=== PATIENT | male | born 1950 ===

== ENCOUNTER 2023-08-08 09:27 | Outpatient (CLI) | payer MEDICARE, OTHER, SELFPAY ==
[2023-08-08 10:29] LABS: Basophils Absolute Auto 0.1 K/mm3 (0.0-0.1); Basophils Percent Auto 0.9 % (0.2-1.2); Eosinophils Absolute Auto 0.3 K/mm3 (0-0.3); Eosinophils Percent Auto 5.9 % (0-4.4); Hematocrit 41.9 % (42.0-52.0); Hemoglobin 13.4 g/dL (14.0-18.0); Immature Granulocyte Absolute 0.01 K/mm3 (0.00-0.031); Immature Granulocyte Percent A 0.2 % (0-0.5); Lymphocytes Absolute Auto 1.71 K/mm3 (0.9-3.2); Lymphocytes Percent Auto 31.5 % (18.3-44.2); Mean Corpuscular Hemoglobin 31.1 pg (26-34); Mean Corpuscular Volume 97.2 fl (80-100); Mean Platelet Volume 10.4 fl (7.4-10.4); Monocytes Absolute Auto 0.5 K/mm3 (0.1-0.6); Monocytes Percent Auto 8.7 % (2.6-8.5); Neutrophils Absolute Auto 2.9 K/mm3 (1.3-6.7); Neutrophils Percent Auto 52.8 % (45.5-73.1); Platelet Count Result 217 k/mm3 (150-375); Red Blood Count 4.31 M/mm3 (4.6-6.20); Red Cell Distribution Width 14.1 % (11.5-14.5); White Blood Count 5.4 K/mm3 (4.5-10.0)
[2023-08-08 10:46] LABS: Prothrombin Time 24.2 Seconds (11.1-14.7)
[2023-08-08 10:59] LABS: Anion Gap 6 mmol/L (8-16); Blood Urea Nitrogen 18 mg/dL (9-20); Calcium 8.9 mg/dL (8.4-10.2); Carbon Dioxide 31 mmol/L (22-30); Chloride 106 mmol/L (98-107); Estimated Glomerular Filt Rate > 60; Glucose 94 mg/dL (65-110); Potassium 4.1 mmol/L (3.4-5.0); Sodium 143 mmol/L (137-145)
[2023-08-08 13:10] LABS: Partial Thromboplastin Time 33.7 SECONDS (22.3-36.8)
== END 2023-08-08 09:28 | disposition home or self-care (01) ==
LOC: ANHLAB 09:42
PROVIDERS: Visit Provider Anesthesiology
DX: R07.89 Other chest pain (principal); A79.1 Rickettsialpox due to Rickettsia akari; I25.10 Atherosclerotic heart disease of native coronary artery without angina pectoris
CPT/HCPCS: 36415; 80048; 85025; 85610; 85730

== ENCOUNTER 2024-02-27 06:20 | Emergency (ER) | payer MEDICARE, SELFPAY ==
--- NOTE | ~2024-02-27 | XR_ITS ---
EXAMINATION: XR foot RT min 3V DATE: 02/27/2024 09:38 INDICATION: Right foot pain and swelling. TECHNIQUE: 4 views of right foot were obtained. COMPARISON: None. FINDINGS: There is mild valgus. No fracture. There is severe osteoarthritis of first metatarsophalang eal joint and mild osteoarthritis of the interphalangeal joints and midfoot joints. There is an enthe sophyte at plantar aspect of calcaneal tuberosity. IMPRESSION: 1. Particular osteoarthritis. 2. Mild hallux valgus. Reviewed, dictated and finalized at location A.
[2024-02-27 06:25] VITALS: BP 120/96; PULSE 98; RESP 20; TEMP 36.7; O2SAT 99
--- NOTE | 2024-02-27 09:24 | ED.EXTPRO ---
HPI - Extremity Problem General Chief complaint: Extremity Problem,Nontraumatic Stated complaint: foot pain and swelling Time Seen by Provider: 02/27/24 08:35 History of Present Illness HPI Narrative: Patient is a 73-year-old male who presents to the ER with swelling of the right foot for the last 3 days. Pain over the plantar aspect of the MTP joints 1 through 3. No known trauma. Denies history of gout but has had swelling in the area before. No fevers or chills or sweats. Has pain with walking. Better with rest. No calf pain. No history DVT. Patient is anticoagulated due to history of AFib. Related Data Allergies Allergy/AdvReac Type Severity Reaction Status Date / Time No Known Allergies Allergy Verified 02/27/24 06:25 Review of Systems Constitutional: Constitutional: Reports no additional constitutional complaints ENT: Reports system reviewed and no additional complaints, except as documented Cardiovascular: Cardiovascular: Reports no additional cardiovascular complaints Respiratory: Respiratory: Reports no additional respiratory complaints Musculoskeletal: Musculoskeletal: Denies back pain, Reports arthralgias, Reports joint swelling and Denies muscle cramps Neurologic: Reports system reviewed and no additional complaints, except as documented PMFSH Past Medical History Medical History (Updated 02/27/24 @ 11:21 by Hero Plascencia MD) Afib GERD (gastroesophageal reflux disease) Hyperlipidemia Hypertension Surgical History Surgical History (Updated 02/27/24 @ 11:15 by Hero Plascencia MD) Hx of CABG Exam Narrative: GENERAL: Well-appearing, well-nourished, and in no acute distress. HEAD: Normocephalic, atraumatic. ENT: Mucous membranes moist. CHEST: Clear to auscultation. No respiratory distress. HEART: Regular rate and rhythm. Normal peripheral pulses. EXTREMITIES: Normal range of motion. Mild edema of the right forefoot with slight redness but no warmth or point tenderness. Negative Homans sign bilaterally. SKIN: Warm, dry, no rash. Yellowing bruise left deltoid. NEURO: Alert and oriented x3. PSYCH: Normal mood and affect. Course Vital Signs Vital signs: Vital Signs Temperature 98.0 F 02/27/24 06:25 Pulse Rate 98 02/27/24 06:25 Respiratory Rate 20 02/27/24 06:25 Blood Pressure 120/96 H 02/27/24 06:25 Pulse Oximetry 99 02/27/24 06:25 Oxygen Delivery Room Air 02/27/24 06:25 Temperature 98.0 F 02/27/24 06:25 Pulse Rate 98 02/27/24 06:25 Respiratory Rate 20 02/27/24 06:25 Blood Pressure 120/96 H 02/27/24 06:25 Pulse Oximetry 99 02/27/24 06:25 Oxygen Delivery Room Air 02/27/24 06:25 MDM - Extremity (Nontraumatic) MDM Narrative Medical decision making narrative: -Course: Resting comfortably. Informed of results. Discussed treatment plan. -Co-morbidities complicating care: Anticoagulation usage, coronary disease -Social determinants of health: Lives at home -External Chart Review: None -Hx from independent Sources: Patient -Independent interpretation of studies: CBC unremarkable but mild anemia at 13.2. CMP normal. CRP and ESR also normal. Uric acid normal. Foot x-ray with severe osteoarthritis at the 1st MTP. -Interventions: Toradol 30 mg IV x1. Postop shoe, Cruz wrap -Shared decision making / Disposition: Discharge home. Tylenol and rest/ice/compression/elevation. Lab Data 02/27/24 09:29 02/27/24 09:29 Labs: Lab Results 02/27/24 Range/Units 09:29 WBC 9.4 (4.5-10.0) K/mm3 RBC 4.09 L (4.6-6.20) M/mm3 Hgb 13.2 L (14.0-18.0) g/dL Hct 39.5 L (42.0-52.0) % MCV 96.6 (80-100) fl MCH 32.3 (26-34) pg MCHC 33.4 (32-36) g/dl RDW 16.3 H (11.5-14.5) % Plt Count 184 (150-375) k/mm3 MPV 10.4 (7.4-10.4) fl Immature Gran % (Auto) 0.2 (0-0.5) % Neut % (Auto) 61.0 (45.5-73.1) % Lymph % (Auto) 23.0 (18.3-44.2) % Lamar % (Auto) 10.5 H (2.6-8.5) %
[2024-02-27] MEDS: KETOROLAC 30 MG/ML VIAL (*BKC) IV PUSH (09:29)
[2024-02-27 09:37] LABS: Basophils Absolute Auto 0.1 K/mm3 (0.0-0.1); Basophils Percent Auto 0.7 % (0.2-1.2); Eosinophils Absolute Auto 0.4 K/mm3 (0-0.3); Eosinophils Percent Auto 4.6 % (0-4.4); Hematocrit 39.5 % (42.0-52.0); Hemoglobin 13.2 g/dL (14.0-18.0); Immature Granulocyte Absolute 0.02 K/mm3 (0.00-0.031); Immature Granulocyte Percent A 0.2 % (0-0.5); Lymphocytes Absolute Auto 2.17 K/mm3 (0.9-3.2); Mean Corpuscular HGB Conc 33.4 g/dl (32-36); Mean Corpuscular Hemoglobin 32.3 pg (26-34); Mean Corpuscular Volume 96.6 fl (80-100); Mean Platelet Volume 10.4 fl (7.4-10.4); Monocytes Percent Auto 10.5 % (2.6-8.5); Neutrophils Absolute Auto 5.8 K/mm3 (1.3-6.7); Platelet Count Result 184 k/mm3 (150-375); Red Blood Count 4.09 M/mm3 (4.6-6.20); Red Cell Distribution Width 16.3 % (11.5-14.5); White Blood Count 9.4 K/mm3 (4.5-10.0)
[2024-02-27 09:53] LABS: Alanine Aminotransferase 23 U/L (6-50); Albumin Level 4.8 g/dL (3.5-5.1); Alkaline Phosphatase 85 U/L (38-126); Anion Gap 9 mmol/L (4-12); Aspartate Amino Transferase 26 U/L (17-59); Bilirubin,Total 0.5 mg/dL (0.2-1.3); Blood Urea Nitrogen 19 mg/dL (9-20); CRP 0.9 mg/dL (<1.0); Calcium 9.2 mg/dL (8.4-10.2); Carbon Dioxide 29 mmol/L (22-30); Chloride 97 mmol/L (98-107); Estimated CRCL calculation 71 ml/min; Estimated Glomerular Filt Rate > 60; Glucose 99 mg/dL (65-110); Potassium 3.8 mmol/L (3.4-5.0); Sodium 135 mmol/L (137-145)
[2024-02-27 10:52] LABS: Erythrocyte Sedimentation Rate 17 mm/hr (0-20)
[2024-02-27 11:30] VITALS: BP 100/72; PULSE 80; RESP 16; TEMP 36.6; O2SAT 100
== END 2024-02-27 11:30 | disposition home or self-care (01) ==
PROVIDERS: Emergency Provider Emergency Medicine
DX: M19.071 Primary osteoarthritis, right ankle and foot (principal); I48.91 Unspecified atrial fibrillation; I10 Essential (primary) hypertension; I25.10 Atherosclerotic heart disease of native coronary artery without angina pectoris; E78.5 Hyperlipidemia, unspecified; K21.9 Gastro-esophageal reflux disease without esophagitis; Z95.1 Presence of aortocoronary bypass graft; Z79.01 Long term (current) use of anticoagulants; M20.11 Hallux valgus (acquired), right foot
CPT/HCPCS: 36415; 73630; 80053; 84550; 85025; 85652; 86140; 96374; 99284; J1885

== ENCOUNTER 2025-02-07 04:42 | Emergency (ER) | payer MEDICARE, SELFPAY ==
--- OUTSIDE RECORDS SUMMARY | 2025-02-07 04:44 | XMS_ITS | Patient Health Record ---
Author Organization [facility] Address [address] [place] [address] RAM[place] Barajas [phone] Care Team Providers Care Coordinator Cardiopulmonary Services Name Role Phone Yuridia NUNEZ, ANIBAL Primary Care Provider Shabbir Leigh Unavailable [phone] ALLERGIES Allergen (clinical drug ingredient) Drug/Non Drug Allergy documented on EMR Reaction Allergy Type Onset Date Status gabapentin Neurontin hallucinations Drug Allergy A ctive REASON FOR REFERRAL No Information MEDICATIONS Medication SIG (Take, Route, Frequency, Duration) Notes Start Date End Date Status Ezetimibe 10 MG Oral for 90 Ac tive Chlorhexidine Gluconate 4 % as directed, use night before and the morning of procedure Externally Two times for 2 days 08/20/2023 Active Esomeprazole Magnesium 40 MG Oral for 90 Active HYDROcodone-Acetaminophen 10-325 MG 2 tablets Oral BID Active QUEtiapine Fumarate 25 MG 1 tablet Oral Once a day Active Warfarin Sodium 4 MG Oral for 90 Active Colchicine 0.6 MG 1 tablet Oral Once a day Active ASA 1 tab Oral Active buPROPion HCl ER (XL) 150 MG 1 tablet in the morning Oral Once a day Active Atorvastatin Calcium 40 MG 1 tablet Oral ly Once a day Active Linzess 145 MCG 1 capsule Oral Once a day Active Fenofibric Acid 105 MG 1 tablet Orally O nce a day Active Diclofenac 18 MG 1 capsule as needed Orally Two times a day Active DULoxetine HCl 60 MG Oral for 90 Active Donepezil HCl 5 MG 1 tablet at bedtime Orally Once a day for 30 day(s) Active Vitamin D-3 1000 UNIT Orally Active Famotidine 40 MG Oral for 90 A ctive Metoprolol Tartrate 25 MG Oral for 90 Active PROBLEMS Problem Type ICD Code Onset Dates Problem Status W/U Status Risk SNOMED Code Notes Problem 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 Problem Chronic pain syndrome (G89.4) Active confirmed Chronic isaiah n syndrome (670121376) Problem Spinal enthesopathy, site unspecified (M46.00) Active confirmed Spinal enthesopathy (47410958) Cervical and lumbar myofascial pain/muscle spasm Problem Spondylosis without myelopathy or radiculopathy, lumbar region (M47.816) Active confirmed Lumbosacral spondylosis without myelopathy (28482974) Problem Spondylosis without myelopathy or radiculopathy, lumbosacral region (M47.817) Active confirmed Lumbosacral spondylosis without myelopathy (disorder) (63558504) Problem Intervertebral disc disorders with radiculopathy, 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) Active confirmed Thoracic radiculopathy (02678051) Problem Radiculopathy, thoracic region (M54.14) Active confirmed Thoracic radiculopathy (29506059) Problem Radiculopathy, lumbar region (M54.16) Active confirmed Lumbar radiculopathy (751176230) Problem Postlaminectomy syndrome, not elsewhere classified (M96.1) Active confirmed Post-laminecto my syndrome (70258517) Problem intermediate frame tender (current) use of anticoagulants (Z79.01) Active confirmed Long-term current use of anticoagulant (645224213) Problem Other mechanical complication of implanted electronic neurostimulator of spinal cord electrode (lead), initial encounter (T85.192A) Active confirmed Mechanical complication of nervous system device, implant AND/OR graft (64849335) Problem Other mechanical complication of implanted electronic neurostimulator, generator, initial encounter (T85.193A) Active confirmed Mechanical complication of nervous system device, implant AND/OR graft (33264210) PLAN OF TREATMENT No Information Insurance Providers Payer Name Payer Address Payer Phone Subscriber Number Group Number Insured Name Patient Relationship to Insured Coverage Start Date Coverage End Date Medicare [place] [address] [address] [place] [phone] [id number] LEXII YANEZ Self - patient is the insured 3 [place] [employer] [place] [address] [place] [phone] [id number] PLAN F LEXII YANEZ Self - patient is the insured 4 MEDICAL (GENERAL) HISTORY Medical History History ICD Code Hypertension CVA Osteoarthritis Gout Surgical History Surgery Date(Month/Year) Left L1-2 Laminectomy Medial facetectomy disc fragments 10/2005 L4-5 laminectomy 1996 CABG 07/2020 Hospitalization History Reason Date(Month/Year) SEE SURGERIES ABOVE
--- OUTSIDE RECORDS SUMMARY | 2025-02-07 04:44 | XMS_ITS | Encounter Summary ---
Author Organization [facility] Health Address [address] [place] [address] Care Team Providers Care Poultry Farm Manager Name Role Phone Joon Hightower MD Unavailable [phone] Encounter Details Date Type Department Care Team (Late st Contact Info) Description 05/14/2019 Lab Requisition [facility] Care DermPath Lab [address] [place] [phone] Reed Alcala MD [facility] [address] [phone] Social History Tobacco Use Types Packs/Day Years Used Date Smoking Tobacco: Every Day Cigarettes 0.3 35 Smokeless Tobacco: Never Alcohol Use Standard Drinks/Week Comments Yes 0 (1 standard drink = 0.6 oz pur e alcohol) Sex and Gender Information Value Date Recorded Sex Assigned at Not on file 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 Gender Identity Not on file Sexual Orientation Not on file documented as of this encounter Plan of Treatment Not on file documented as of this encounter Procedures Procedure Name Priority Date/Time Associated Diagnosis Comments DERMATOPATHOLOGY Routine 05/13/2019 12:0 0 AM CDT documented in this encounter Results * DERMATOPATHOLOGY (05/13/2019 12:00 AM CDT) Case Report Dermatopathology Report Case: [id number] Authorizing Provider: Reed Alcala MD Collected: 05/13/2019 12:00 AM Ordering Location: [facility] DermPath Lab Received: 05/14/2019 09:41 AM Pathologist: Melonie Hsu MD Specimen: Skin, left lateral torso 12:58 PM CDT DERMATOPATHOLOGY LABORATORY Final Diagnosis Specimen A. 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 12:58 PM CDT DERMATOPATHOLOGY LABORATORY Gross Description Specimen A: Received is one formalin filled container labeled with the patient's name and designated left lateral torso. The specimen consists of a shave biopsy measuring [id number]. Jar 0. 12:58 PM CDT DERMATOPATHOLOGY LABORATORY Microscopic Description Specimen A. SKIN, left lateral torso: Sections show nests of cells with pale cytoplasm and thin strands of relatively normal keratinocytes intervening. There is overlying parakeratosis. 12:58 PM CDT DERMATOPATHOLOGY LABORATORY Disclaimer An external and internal positive and negative controls are appropriate for the histochemical, immunohistochemical and immunofluorescence stain(s) in this case (if any), except where stated explicitly. The performance characteristics of the stain(s) cited in this report were developed and its performance characteristic determined by the Dermatopathology Laboratory at [facility], directed by Dr. Jair Carrasquillo. These tests need not be, and therefore are not, approved by the [place] Food and Drug Administration. The tests are used for clinical purposes. Billing Codes Specimen Charges Stain Charges 97732 1 12:58 PM CDT DERMATOPATHOLOGY LABORATORY Embedded Images 12:58 PM CDT DERMATOPATHOLOGY LABORATORY Pathology/Cytolog y TISSUE SPECIMEN FROM SKIN / Unknown 05/13/2019 05/14/2019 9:41 AM CDT Reed Alcala MD LAB - PATHOLOGY/CYTOLOGY ORDERAB LES Final Result DERMATOPATHOLOGY LABORATORY [facility] - Department of Dermatology [address] [place] [address], 5th Floor Lab [address] [phone] documented in this encounter Visit Diagnoses Not on filedocumented in this encounter Care Teams Poultry Farm Manager Relationship Specialty Start Date End Date Joon Hightower MD [address] [facility] [place] [phone] PCP - Attributed-MSSP 07/28/20 08/16/21 documented as of this encounter
--- OUTSIDE RECORDS SUMMARY | 2025-02-07 04:44 | XMS_ITS | Encounter Summary ---
Author Organization [facility] Health Address [address] [facility] [place] [address] Care Team Providers Care Hydroelectric Plant Structural Engineer Name Role Phone Unavailable Primary Care Provider Unavailabl e Encounter Details Date Type Department Care Team (Late st Contact Info) Description 12/05/2021 Lab Requisition [facility] DermPath Lab [address] [place] [address] Reed Alcala MD [address] [place] [phone] Social History Tobacco Use Types Packs/Day Years Used Date Smoking Tobacco: Every Day Cigarettes 0.3 35 Smokeless Tobacco: Never Alcohol Use Standard Drinks/Week Comments Yes 0 (1 standard drink = 0.6 oz pur e alcohol) Sex and Gender Information Value Date Recorded Sex Assigned at Not on file 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 Gender Identity Not on file Sexual Orientation Not on file documented as of this encounter Plan of Treatment Not on file documented as of this encounter Procedures Procedure Name Priority Date/Time Associated Diagnosis Comments DERMATOPATHOLOGY Routine 12/04/2021 12:0 0 AM CDT documented in this encounter Results * DERMATOPATHOLOGY (12/04/2021 12:00 AM CDT) Case Report Dermatopathology Report Case: [id number] Authorizing Provider: Reed Alcala MD Collected: 12/04/2021 12:00 AM Ordering Location: [facility] DermPath Lab Received: 12/05/2021 08:21 AM Pathologist: Meri Hancock MD Specimen: Skin, right lateral knee 4:22 PM T DERMATOPATHOLOGY LABORATORY Final Diagnosis Specimen A. SKIN, right lateral knee: ACTINIC KERATOSIS, PIGMENTED (L57.0) (see microscopic description) 2 4:22 PM T DERMATOPATHOLOGY LABORATORY at 1622 CDT Clinical History SK, Lentigo, R/O Atypical Melanocytic Lesion 4:22 PM T DERMATOPATHOLOGY LABORATORY Gross Description Specimen A: Received is one formalin filled container labeled with the patient's name and designated right lateral knee. The specimen consists of a shave biopsy measuring [id number]. Jar 0. 4:22 PM T DERMATOPATHOLOGY LABORATORY Microscopic Description Specimen A. SKIN, right lateral knee: There is hyperkeratosis. Along the undersurface of the epidermis, there are buds of atypical keratinocytes in a disorderly arrangement. There is prominent pigmentation in some of the keratinocytes. The number of melanocytes, highlighted by MART-1/Melan-A immunohistochemical staining, is only mildly increased. 4:22 PM CDT DERMATOPATHOLOGY LABORATORY Disclaimer An external and internal positive and negative controls are appropriate for the histochemical, immunohistochemical and immunofluorescence stain(s) in this case (if any), except where stated explicitly. The performance characteristics of the stain(s) cited in this report were developed and its performance characteristic determined by the Dermatopathology Laboratory at [facility], directed by Dr. Jair Carrasquillo. These tests need not be, and therefore are not, approved by the [place] Food and Drug Administration. The tests are used for clinical purposes. Billing Codes Specimen Charges Stain Charges 35693 1 21209 1 2 4:22 PM CDT DERMATOPATHOLOGY LABORATORY Embedded Images 2 4:22 PM CDT DERMATOPATHOLOGY LABORATORY Pathology/Cytolog y TISSUE SPECIMEN FROM SKIN / Unknown 12/04/2021 12/05/2021 8:21 AM CDT us Reed Alcala MD LAB - PATHOLOGY/CYTOLOGY ORDERAB LES Final Result DERMATOPATHOLOGY LABORATORY [facility] - Department of Dermatology [facility] Medicine [address] [place] [address], [address] [phone] documented in this encounter Visit Diagnoses Not on filedocumented in this encounter
--- OUTSIDE RECORDS SUMMARY | 2025-02-07 04:44 | XMS_ITS | Clinical Summary ---
Author Organization [facility] Address [address] [facility] [place] [address] Care Team Providers Care Food Sales Clerk Name Role Phone Unavailable Primary Care Provider Unavailabl e Source Comments [facility],non-owned Affiliates and Associated Physician Practices is amultiple site organization consisting of ambulatory clinics and hospital sitesin [place], [place], [place] and [place]. This disclosure is being madepursuant to the Care Everywhere program and may not contain all information available regarding this patient. Last updated 18.[facility] Allergies No known active allergies Medications * Be aware that medications may not be up to date on this document. Alwaysverify current medications with the patient. aspirin EC (ECOTRIN) 81 MG tablet Take 81 mg by mouth once daily. Last dose one week or more Active atorvastatin (LIPITOR) 40 MG tablet Take 40 mg by mouth at bedtime. Active pantoprazole EC (PROTONIX) 40 MG tablet Take 40 mg by mouth once daily. Instructed to take a.m. Of surgery with sip of water Active amLODIPine (NORVASC) 10 MG tablet Take 10 mg by mouth once daily. Instructed to take a.m. Of surgery with sip of water Active ramipril (ALTACE) 10 MG capsule Take 10 mg by mouth once daily. Instructed to take a.m. Of surgery with sip of water Active escitalopram (LEXAPRO) 10 MG tablet Take 10 mg by mouth once daily. Active indapamide (LOZOL) 2.5 MG tablet Take 1.25 mg by mouth once daily. Instructed to take a.m. Of surgery with sip of water Active naproxen-esomep razole EC (VIMOVO) 500-20 MG tablet Take 1 Tab by mouth 2 times daily before meals. Active oxycodone, immediate release, (OXY-IR) 15 MG tablet Take 15 mg by mouth every 4 hours as needed. Active temazepam (RESTORIL) 15 MG capsule Take 15 mg by mouth nightly as needed. Active milnacipran (SAVELLA) 50 MG tablet Take 50 mg by mouth once daily. Active hydrocodone-telly taminophen (VICODIN) 5-500 MG tablet Take 1-2 Tabs by mouth every 6 hours as needed for Pain. 36 Tab 0 1 Active ciprofloxacin (CIPRO) 500 MG tablet Take 1 Tab by mouth every 12 hours. 14 Tab 0 1 Active docusate sodium (COLACE) 100 MG capsule Take 1 Cap by mouth 2 times daily. 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 Gender Identity Not on file Sexual Orientation Not on file Last Filed Vital Signs Vital Sign Reading Time Taken Comments Blood Pressure 141/83 03/28/2011 5:30 AM CDT Pulse 83 03/28/2011 5:30 AM CDT Temperature 37 C (98.6 F) 03/28/2011 5:30 AM CDT Respiratory Rate 16 03/28/2011 5:30 AM CDT Oxygen Saturation 100% 03/28/2011 5:30 AM CDT Inhaled Oxygen Concentration - - Weight 72.2 kg (159 lb 2.8 oz) 03/27/2011 10:48 AM CDT Height 170.2 cm (5' 7) 03/27/2011 10:48 AM CDT Body Mass Index 24.93 03/27/2011 10:48 AM CDT Plan of Treatment Health Maintenance Due Date Last Done Comments HEPATITIS C SCREENING 07/08/1966 DTAP/TDAP/TD VACCINES (1 - Tdap) 1967 PNEUMOCOCCAL VACCINE 50+ (1 of 2 - PCV) 1967 ZOSTER VACCINE (1 of 2) 1998 Respiratory Syncytial Virus (RSV) Vaccine Pt: or over 60 yrs (1 - 1-dose 75+ series) 2023 COVID-19 VACCINE (1 - 2023-2 5 season) 2024 DEPRESSION SCREENING 07/28/2024 INFLUENZA VACCINE (#1) 2025 HEPATITIS B VACCINE Aged Out No longe r eligible based on patient's age to complete this topic HIB VACCINE Aged Out No longer eligi ble based on patient's age to complete this topic HPV VACCINE Aged Out No longer eligi ble based on patient's age to complete this topic MENINGOCOCCAL (Group B) VACC INE SHARED DECISION-MAKING Aged Out No longer eligibl e based on patient's age to complete this topic MENINGOCOCCAL GROUPS A/C/Y/W VACCINE Aged Out No longer eligible b ased on patient's age to complete this topic Insurance MEDICARE [facility] Advance Directives * FULL RESUSCITATION (Latest Code Status on File) Date Activated Date Inactivated Comments 03/27/2011 6:37 PM 03/29/2011 12:40 AM
--- OUTSIDE RECORDS SUMMARY | 2025-02-07 04:45 | XMS_ITS ---
Author Organization [facility] Address [id number] [place] [id number] Care Team Providers Care Front Desk Receptionist Name Role Phone Joon Hightower MD Primary Care Provider [phone] Adelso Guerrero MD Unavailable Matias Gomez NP Unavailable [phone] Khris Paiz MD Unavailable Sonny Diamond MD Unavailable Jody Sullivan DO Unavailable Matt Hickey MD Unavailable Active Problems Problem Noted Date Diagnosed Date Back pain, unspecified back location, unspecified back pain laterality, unspecified chronicity 07/06/2024 Upper extremity weakness 09/16/2023 Atrial fibrillation with RVR 08/28/2023 Abrasion of face 06/10/2023 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 08/16/2022 Primary osteoarthritis of both knees 07/17/2022 Status post right knee replacement 07/17/2022 Other thrombophilia 11/06/2021 Neoplasm of uncertain behavior of skin Atrial flutter, unspecified type 10/25/2021 Hx of CABG 10/11/2021 Atrial flutter 10/11/2021 Therapeutic opioid induced constipation 10/10/19 History of depression 05/21/2021 History of fibromyalgia 05/21/2021 CHF (congestive heart failure) 05/21/2021 Actinic keratosis 01/30/2021 Keratosis 01/30/2021 Melanocytic nevus of trunk 01/30/2021 Screening for malignant neoplasm of skin 021 Pain in right knee 06/12/2020 Primary osteoarthritis of right knee 02/17/2020 Osteoarthritis of left knee 02/17/2020 Chronic pain of right knee 01/17/2020 Gait difficulty 12/14/2019 Bradycardia 10/11/2019 Unspecified atrial fibrillation 10/11/2019 Valvular heart disease 10/11/2019 Coronary artery disease of n ative heart with stable angina pectoris ([facility]) 08/03/2019 Overview (08/03/2019): Added automatically from request for surgery [id number] Atrioventricular block, first degree 06/14/2019 Squamous cell carcinoma in situ (SCCIS) 05/18/20 19 Assessment & Plan (05/31/2019 12:48 PM DIAL POLISHER): Left midback Pathology results and diagnosis discussed. Excision versus imiquimod for treatment discussed with patient including risks, benefits, and recovery of each. The patient would like to opt for cream at this time to avoid further surgery. I explained to him the directions for using this cream and what the expected outcome will be. He would like to proceed and I will send in his prescription today. Pseudogout 04/16/2019 Chronic bilateral low back pain with bilateral s ciatica 04/12/2019 Radiculopathy, lumbosacral region 04/12/2019 Lumbosacral spondylosis without myelopathy 04/12 Postlaminectomy syndrome, lumbar 04/12/2019 Spinal stenosis of lumbar re gion without neurogenic claudication 04/12/2019 Myalgia 04/12/2019 Long-term current use of opiate analgesic 2018 Severe malnutrition 10/19/2018 Cellulitis of left hand 10/17/2018 Personal history of gout 10/17/2018 Cerebral infarction, unspecified 06/08/2018 Chronic obstructive pulmonary disease 06/08/2018 Disorder of lung 06/08/2018 Encounter for health-related screening 8 Gallbladder sludge 06/08/2018 Impaired glucose tolerance 06/08/2018 Iron deficiency 06/08/2018 Overview (04/04/2021): b12 and float normal Neck pain, chronic 06/08/2018 Overweight 06/08/2018 Personal history of nicotine dependence 06/08/20 18 Vitamin D deficiency 06/08/2018 Prostate cancer (CMS/HCC) 03/26/2011 Hyperlipidemia 10/10/2009 Hypertension 10/06/2009 Family history of heart disease 07/28/1961 Overview (04/04/2021): mom has sotomayor surgery and pacer Current Treatment and Therapy Plans No current plan information found. Past Treatment and Therapy Plans No past plan information found. 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 Pathology results discussed, no further treatment required. Sutures removed without difficulty, wound care administered and instructions given both verbally and in written form. Follow-up in 6 weeks. Assessment & Plan (05/17/2019 1:28 PM CDT): Previously biopsied by Dr. Alcala. To be excised in the clinic today by Dr. Jose. Please see separate procedure note.
--- OUTSIDE RECORDS SUMMARY | 2025-02-07 04:45 | XMS_ITS | Encounter Summary ---
Author Organization [facility] Address [address] [place] [address] Care Team Providers Care Impersonator Character Name Role Phone Joon Hightower MD Primary Care Provider [phone] Khushi Aleman RN Unavailable Unavailab Adelso Helm MD Unavailable [phone] Matias Gomez NP Unavailable [phone] Reason for Visit * Diagnostic Imaging (Routine) - Closed Specialty Diagnoses / Procedures Referred By Contac t Referred To Contact Diagnoses Status post right knee replacement Procedures XR Knee Right 3 View Adelso Guerrero MD Phone: tel: fax: [facility] Medical Group Referral ID Status Reason Start Date Expiration Date Visits Re quested Visits Authorized [id number] Closed 05/14/2023 06/12/2024 1 1 Encounter Details Date Type Department Care Team (Late st Contact Info) Description 05/14/2023 10:11 AM CDT Hospital Encounter [facility] [address] [address] Social History Tobacco Use Types Packs/Day Years Used Date Smoking Tobacco: Every Day Cigarettes Smokeless Tobacco: Never Comments:A couple daily Alcohol Use Standard Drinks/Week Comments No 0 (1 standard drink = 0.6 oz pur e alcohol) social C Utilities Answer Date Recorded In the past 12 months has th e electric, gas, oil, or water company threatened to shut off services in your home? No 07/07/2024 Social Connection and Isolat ion Panel [NHANES] Answer Date Recorded In a typical week, how many times do you talk on the phone with family, friends, or neighbors? More than three times a week 07/07/2024 How often do you get togethe r with friends or relatives? More than three times a week 07/07/2024 How often do you attend chur ch or restorationism services? Never 07/07/2024 Do you belong to any clubs o r organizations such as uatsdin groups, unions, fraternal or athletic groups, or school groups? No 07/07/2024 How often do you attend meet ings of the clubs or organizations you belong to? Never 07/07/2024 Are you , , di vorced, , never , or living with a partner? 07/07/2024 AUDIT-C Answer Date Recorded Q1: How often do you have a drink containing alc ohol? 2-4 times a month 07/07/2024 Q2: How many drinks containi ng alcohol do you have on a typical day when you are drinking? 1 or 2 07/07/2024 Q3: How often do you have si x or more drinks on one occasion? Weekly 07/07/2024 Overall Financial Resource Strain (CARDIA) Answe r Date Recorded How hard is it for you to pa y for the very basics like food, housing, medical care, and heating? Not hard at all 07/07/2024 PHQ-2 Answer Date Recorded PHQ-2 Total Score (If total score is 3 or more points, staff should administer the PHQ-9) 0 05/21/2021 Hunger Vital Sign Answer Date Recorded Within the past 12 months, y ou worried that your food would run out before you got the money to buy more. Never true 07/07/20 24 Within the past 12 months, t he food you bought just didn't last and you didn't have money to get more. Never true 07/07/2024 PRAPARE - Transportation Answer Date Re corded In the past 12 months, has l ack of transportation kept you from medical appointments or from getting medications? No 06/27 In the past 12 months, has l ack of transportation kept you from meetings, work, or from getting things needed for daily living? No 07/07/2024 Housing Stability Vital Sign Answer Haris e Recorded In the last 12 months, was t here a time when you were not able to pay the mortgage or rent on time? No 08/28/2023 In the last 12 months, how many places have you lived? 1 08/28/2023 In the last 12 months, was t here a time when you did not have a steady place to sleep or slept in a care home (including now)? No 08/28/2023 Housing Stability Vital Sign Answer Haris e Recorded In the last 12 months, was t here a time when you were not able to pay the mortgage or rent on time? No 07/07/2024 In the past 12 months, how m any times have you moved where you were living? 0 07/07/2024 At any time in the past 12 m [facility], were you homeless or living in a care home (including now)? No 07/07/2024 Personal Safety Answer Date Recorded Have you ever been in or are you currently in a harmful physical or emotional relationship or is someone making you feel afraid or unsafe? Denies 07/06/2024 Sex and Gender Information Value Date Recorded Sex Assigned at Not on file Legal Sex Male 11:56 PM HUMAN RESOURCES COMPLIANCE MANAGER Gender Identity Not on file Sexual Orientation Not on file Occupation Industry Job Start Date Job End Date retired Not on file Not on file Not on file documented as of this encounter Functional Status * Audit-C Score Answer Date of Assessment Author 5 07/07/2024 2:17 PM Montana Mack RN * Question Answer Date of Assessment Author Q1: How often do you have a drink containing alcohol? 2-4 times a month 07/07/2024 2:17 PM Laura Mack, VIVIEN Q2: How many drinks containing alcohol do you have on a typical day when you are drinking? 1 or 2 07/07/2024 2:17 PM Laura Mack RN Q3: How often do you have six or more drinks on one occasion? Weekly 07/07/2024 2:17 PM HUMAN RESOURCES COMPLIANCE MANAGER Laura Ellsworth RN documented as of this encounter Plan of Treatment Not on file documented as of this encounter Procedures Procedure Name Priority Date/Time Associated Diagnosis Comments XR KNEE RIGHT 3 VIEWS Schedule Routine, Read Routine (OP Routine) 05/14/2023 10:27 AM CDT Status post right knee replacement documented in this encounter Results * XR Knee Right 3 View (05/14/2023 10:27 AM CDT) Anatomical Region Laterality Modality Lower Extremities, Knee Right Computed Radiography Narrative 05/14/2023 10:27 AM CDT Radiographs of the right knee reviewed and interpreted these demonstrate total knee arthroplasty to be well-positioned with no evidence of loosening or component failure Adelso Guerrero MD IMG XR PROCEDURES Final R esult documented in this encounter Visit Diagnoses Not on filedocumented in this encounter Additional Health Concerns Infection Onset Date Last Indicated Resolved Time COVID: Suspected 08/28/2023 08/28/2023 08/28/2023 9:34 AM HUMAN RESOURCES COMPLIANCE MANAGER COVID: Suspected 07/06/2024 07/06/2024 07/06/2024 12:11 PM HUMAN RESOURCES COMPLIANCE MANAGER documented as of this encounter Care Teams Impersonator Character Relationship Specialty Start Date End Date Joon Hightower MD [address] [place] [address] PCP - General 03/20/16 Khushi Aleman RN Registered Nurse 05/11/19 08/24/24 Adelso Guerrero MD Surgeon Orthopedic Surgery 05/22/21 [place] [address] [facility] [address] [place] [address] Nurse Practitioner Pain Management 10/27/21 documented as of this encounter
--- OUTSIDE RECORDS SUMMARY | 2025-02-07 04:45 | XMS_ITS ---
Author Organization [facility] Address [address] [place] [address] RAMONA Barajas [address] Care Team Providers Care Skirt Maker Name Role Phone Yuridia NUNEZ, ANIBAL Primary Care Provider Shabbir Leigh Unavailable [phone] ALLERGIES Allergen (clinical drug ingredient) Drug/Non Drug Allergy documented on EMR Reaction Allergy Type Onset Date Status gabapentin Neurontin hallucinations Drug Allergy A ctive REASON FOR VISIT Follow Up, Right = Left Low Back Pain MEDICATIONS Medication SIG (Take, Route, Frequency, Duration) Notes Start Date End Date Status Chlorhexidine Gluconate 4 % as directed, use night before and the morning of procedure Externally Two times for 2 days 08/20/2023 Active QUEtiapine Fumarate 25 MG 1 tablet Oral Once a day Active Colchicine 0.6 MG 1 tablet Oral Once a day Active buPROPion HCl ER (XL) 150 MG 1 tablet in the morning Oral Once a day Active Linzess 145 MCG 1 capsule Oral Once a day Active Fenofibric Acid 105 MG 1 tablet Orally O nce a day Active DULoxetine HCl 60 MG Oral for 90 Active Vitamin D-3 1000 UNIT Orally Active Famotidine 40 MG Oral for 90 A ctive Metoprolol Tartrate 25 MG Oral for 90 Active Ezetimibe 10 MG Oral for 90 Ac tive Esomeprazole Magnesium 40 MG Oral for 90 Active HYDROcodone-Acetaminophen 10-325 MG 2 tablets Oral BID Active Warfarin Sodium 4 MG Oral for 90 Active Atorvastatin Calcium 40 MG 1 tablet Oral ly Once a day Active ASA 1 tab Oral Active Diclofenac 18 MG 1 capsule as needed Orally Two times a day Active Donepezil HCl 5 MG 1 tablet at bedtime Orally Once a day for 30 day(s) Active VITAL SIGNS Blood pressure systolic 123 mm Hg 10/02/19 24 Blood pressure diastolic 90 mm Hg 024 Heart Rate 98 /min 10/02/2023 Respiratory Rate 16 /min 10/02/2023 Height 5 ft 7 in in 10/02/2023 Weight 155 lbs 10/02/2023 BMI 24.27 kg/m2 10/02/2023 Encounters Encounter Location Date Provider Diagnosis [facility] [address] [facility] [place] [address] 10/02/2023 Shabbir Parkinson Radiculopathy, lumba r region M54.16 ; Spondylosis without myelopathy or radiculopathy, lumbar region M47.816 ; Postlaminectomy syndrome, not elsewhere classified M96.1 ; Spondylosis without myelopathy or radiculopathy, lumbosacral region M47.817 ; Spinal enthesopathy, site unspecified M46.00 ; Other postherpetic nervous system involvement B02.29 ; Intervertebral disc disorders with radiculopathy, thoracic region M51.14 and Radiculopathy, thoracic region M54.14 ASSESSMENTS Encounter Date Diagnosis Assessment Notes Treatment Notes Treatment Clinical Notes Section Notes 10/02/2023 Radiculopathy, lumbar region (ICD-10 - M54.16) The patient was instructed to continue avoiding submerging in the water, however he is advised to continue daily showers. Additionally, the patient was educated to contact the office in case of fever, bleeding or significant drainage from postoperative incisions. He verbalizes good understanding of that. He currently denies a need for any injections or interventions at this time. He states he is returning to physical therapy later next week. He would like to return to the office ias needed for follow-up and reevaluation of his pain at that time. 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 Parkinson. I have discussed and reviewed all of the pertinent history, physical examination findings and diagnostic imaging results with him. As a result of our discussion, Dr. Parkinson has determined the above assessment and directed the treatment plan. This note was dictated using voice recognition software and therefore inadvertent errors may have occurred. This note was dictated by GUALBERTO Parra PLAN OF TREATMENT Treatment Notes Assessment Notes Radiculopathy, lumbar region The patient was instructed to continue avoiding submerging in the water, however he is advised to continue daily showers. Additionally, the patient was educated to contact the office in case of fever, bleeding or significant drainage from postoperative incisions. He verbalizes good understanding of that. He currently denies a need for any injections or interventions at this time. He states he is returning to physical therapy later next week. He would like to return to the office ias needed for follow-up and reevaluation of his pain at that time. Other The above-named nidhi ent was evaluated in conjunction with Dr. Parkinson. I have discussed and reviewed all of the pertinent history, physical examination findings and diagnostic imaging results with him. As a result of our discussion, Dr. Parkinson has determined the above assessment and directed the treatment plan. This note was dictated using voice recognition software and therefore inadvertent errors may have occurred. This note was dictated by GUALBERTO Parra Next Appt Details Follow Up: 4 Weeks OPV, Reas on: Progress Notes * Examination Category Sub-Category Detail Notes Category Not es Examination/ Pre-Anesthesia Assessment General: : The patient is alert and o riented X 3 in no acute distress UDS 12/10/2018 - Compliant HEENT: : Normocephalic, atr aumatic. PERRL. The oropharynx is clear Neck: : There is full rang e of motion of the cervical spine Heart: : Regular rate and r hythm Chest: : Clear to auscultat ion bilaterally Abdomen: : Soft and benign Musculoskeletal and Extremities: : There is tenderness to palpation over the midline thoracic spine at approximately T9-T10 level and thoracic PS muscles. TTP over L3-S1 facet joints and lumbar paraspinous muscles bilaterally. Extension and lateral rotation of the lumbar spine reproduces the patient's typical axial low back pain. Dc's and gaenslen's are negative bilaterally Neurological: : There is positive straight leg raising bilaterally Skin: Clean, dry, intact. Postoperative midline lumbar spine and left buttock incisions are healing nicely without signs or symptoms of dehiscence, bleeding or infection. Psychiatric: : Mood and affect ar e normal History and Physical Notes * HPI (History of Present Illness) Category Sub-Category Detail Notes Category Not es Pain Management Assessment and Follow-up: Follow -up Plan documented:: Yes [facility] Quality 2020: [facility] Documented:: Compliant
--- OUTSIDE RECORDS SUMMARY | 2025-02-07 04:45 | XMS_ITS ---
Author Organization [facility] Address [address] [place] [address] [place] Barajas [address] Care Team Providers Care Rehab Rn Name Role Phone Yuridia NUNEZ, ANIBAL Primary Care Provider Shabbir Leigh Unavailable [phone] ALLERGIES Allergen (clinical drug ingredient) Drug/Non Drug Allergy documented on EMR Reaction Allergy Type Onset Date Status gabapentin Neurontin hallucinations Drug Allergy A ctive REASON FOR VISIT Follow Up/SCS REMOVAL WOUND CHECK, Right = Left Low Back Pain MEDICATIONS Medication SIG (Take, Route, Frequency, Duration) Notes Start Date End Date Status buPROPion HCl ER (XL) 150 MG 1 tablet in the morning Oral Once a day Active Linzess 145 MCG 1 capsule Oral Once a day Active QUEtiapine Fumarate 25 MG 1 tablet Oral Once a day Active Colchicine 0.6 MG 1 tablet Oral Once a day Active Chlorhexidine Gluconate 4 % as directed, use night before and the morning of procedure Externally Two times for 2 days 08/20/2023 Active Fenofibric Acid 105 MG 1 tablet Orally O nce a day Active Vitamin D-3 1000 UNIT Orally Active Famotidine 40 MG Oral for 90 A ctive Metoprolol Tartrate 25 MG Oral for 90 Active DULoxetine HCl 60 MG Oral for 90 Active Esomeprazole Magnesium 40 MG Oral for 90 Active Atorvastatin Calcium 40 MG 1 tablet Oral ly Once a day Active HYDROcodone-Acetaminophen 10-325 MG 2 tablets Oral BID Active Warfarin Sodium 4 MG Oral for 90 Active Ezetimibe 10 MG Oral for 90 Ac tive ASA 1 tab Oral Active Donepezil HCl 5 MG 1 tablet at bedtime Orally Once a day for 30 day(s) Active Diclofenac 18 MG 1 capsule as needed Orally Two times a day Active VITAL SIGNS Temperature 97.1 degrees Fahrenheit 09/24/19 24 Blood pressure systolic 136 mm Hg 09/24/19 24 Blood pressure diastolic 101 mm Hg 024 Heart Rate 106 /min 09/24/2023 Respiratory Rate 18 /min 09/24/2023 Height 5 ft 7 in in 09/24/2023 Weight 155 lbs 09/24/2023 BMI 24.27 kg/m2 09/24/2023 Encounters Encounter Location Date Provider Diagnosis [facility] [address] [place] [id number] 09/24/2023 Shabbir Parkinson Other mechanical complication of implanted electronic neurostimulator, generator, initial encounter T85.193A ; Radiculopathy, lumbar region M54.16 ; Postlaminectomy syndrome, not elsewhere classified M96.1 and Chronic pain syndrome G89.4 ASSESSMENTS Encounter Date Diagnosis Assessment Notes Treatment Notes Treatment Clinical Notes Section Notes 09/24/2023 Other mechanical complication of implanted electronic neurostimulator, generator, initial encounter (ICD-10 - T85.193A) 09/24/2023 Radiculopathy, lumbar region (ICD-10 - M54.16) The patient was instructed to continue avoiding submerging in the water, however he is advised to continue daily showers. Additionally, the patient was educated to contact the office in case of fever, bleeding or significant drainage from postoperative incisions. he verbalizes good understanding of that. , He currently denies a need for any injections or interventions at this time. He would like to return to the office in 1 weekfor follow-up and reevaluation of his pain at that time. 09/24/2023 Postlaminectomy syndrome, not elsewhere classified (ICD-10 - M96.1) 09/24/2023 Chronic pain syndrome (ICD-10 - G89.4) 09/24/2023 Other The above-named patient was evaluated in [...] bleeding or significant drainage from postoperative incisions. he verbalizes good understanding of that. , He currently denies a need for any injections or interventions at this time. He would like to return to the office in 1 weekfor follow-up and reevaluation of his pain at [...] GUALBERTO Parra Next Appt Details Follow Up: 1 Week OPV, Reaso n: Progress Notes * Examination Category Sub-Category Detail Notes Category Not es Examination/ Pre-Anesthesia Assessment General: The patient is alert and oriented X 3 in moderate distress secondary to pain HEENT: Normocephalic, atrau matic. PERRL. The oropharynx is clear Neck: There is full range of motion of the cervical spine Heart: Regular rate and rhy thm Chest: Clear to auscultatio n bilaterally Abdomen: Soft and benign with normal bowel sounds throughout Musculoskeletal and Extremities: There i s tenderness to palpation over the bilateral L2-3 through L5-S1 facet joints. Extension and lateral rotation of the lumbar spine reproduces the patient's typical axial low back pain. Dc's, Jackson's and Gaenslen's are positive bilaterally. There is tenderness to palpation over the bilateral sacroiliac joints and greater trochanters. There is tenderness to palpation over the bilateral lumbar paraspinal muscles Neurological: There are no focal s trength deficits in the bilateral upper and lower extremities Skin: Clean, dry, intact. Postoperative midline lumbar spine and left buttock incisions are well approximated with wound glue and are healing nicely without signs or symptoms of dehiscence, bleeding or infection Psychiatric: Mood and affect are normal History and Physical Notes * HPI (History of Present Illness) Category Sub-Category Detail Notes Category Not es Pain Management Assessment and Follow-up: Follow -up Plan documented:: Yes [facility] Quality 2020: [facility] Documented:: Compliant
--- OUTSIDE RECORDS SUMMARY | 2025-02-07 04:45 | XMS_ITS | Clinical Summary ---
Author Organization [facility] Address [address] [place] [id number] Care Team Providers Care Satellite Tv Installer Name Role Phone Unavailable Primary Care Provider Unavailabl e Social History Tobacco Use Types Packs/Day Years Used Date Smoking Tobacco: Never Assessed Sex and Gender Information Value Date Recorded Sex Assigned at Not on file Legal Sex Male 7:42 PM RATE REVIEWER Gender Identity Not on file Sexual Orientation Not on file Plan of Treatment Health Maintenance Due Date Last Done Comments ZOSTER VACCINE (1 of 2) 1998 PNEUMOCOCCAL VACCINE 50+ YEARS (2 of 2 - PPSV23) 10/1408/20/2015 RSV VACCINE (60+ or ) (1 - 1-dose 75+ series) 2023 INFLUENZA VACCINE (#1) 2025 05/22/2021 DTAP/TDAP/TD VACCINES (2 - Td or Tdap) 03/18/2032 Insurance MEDICARE PART A AND B GENERIC PAYOR
--- OUTSIDE RECORDS SUMMARY | 2025-02-07 04:45 | XMS_ITS | Clinical Summary ---
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 Gender Identity Not on file Sexual Orientation Not on file Plan of Treatment Health Maintenance Due Date Last Done Comments Hepatitis C Virus (HCV) Screening 1948 TdaP Immunization 1948 Colonoscopy 1993 Colorectal Cancer Screening 1993 Cologuard 1998 Immunochemical Fecal Occult Blood 1998 Pneumococcal Immunization (5 0+ years) (1 of 1 - PCV) 1998 Zoster Immunization (1 of 2) 1998 Respiratory Syncytial Virus (RSV) Immunization (Adult) (1 - 1-dose 75+ series) 2023 Influenza Immunization (#1) 2024 SARS-COV-2 Immunization ( season) 2024 Hepatitis B Immunization Aged Out No longer eligible based on patient's age to complete this topic Meningococcal Immunization (ACWY) Aged Out No longer eligible based on patient's age to complete this topic Rotavirus Immunization Aged Out No lo nger eligible based on patient's age to complete [place] [address] [place] [address] MEDICARE Care Teams Load Mixer Relationship Specialty Start Date End Date Joon Hightower MD [address] [place] [address] PCP - General 09/04/16
--- OUTSIDE RECORDS SUMMARY | 2025-02-07 04:45 | XMS_ITS | Data Portability ---
Author Organization [facility], Main Office Address [address] [facility] [address] [place] [address] Assessment No assessment recorded. Plan of Treatment Reminders Order Date Submit Date Provider Last Modified By Organization Details Last Modified Time Details Appointments FOLLOW UP 15 2024 10:15A M Dr. Alcala Not available Not available Not available Lab None recorded . Referral None recorded . Procedures None recorded . Surgeries None recorded . Imaging None recorded . Medication Orders None recorded . Patient TargetsNo targets recorded. Patient Instructions Encounter Date Encounter Id Patient Instructions Last Modified By Organization Details Last Modified Time 06/11/2023 [id number] REVD DX [place] AND ANCILLARY CARE. Sun protection. Hat. Aqauphor to abrasions. FU 6 mos, CSE epitts4 Not available 06/11/2023 09:50:48 Reason for Referral None Reported. Problems Name Problem SNOMED Code Status Onset Date Resolution Date Notes Provider Name and Address Organization Details Recorded Time Chronic effect of ultraviolet radiation on normal skin 325076287 Active 2022 Reed Alcala MD [address] [facility] [address], [place], [address], [facility] 3 10:19:57 Seborrheic keratosis 719864643 Active 2022 Reed Alcala MD [address] [facility] [address], [place], [address], [facility] 3 11:14:51 Abrasion of face 562100292 Active 2022 Reed Alcala MD [address] [facility] [address], [place], [address], [facility] 3 09:50:15 Seborrheic dermatitis of scalp 103082779 Active 2023 Reed Alcala MD [address], [place], [address], [facility] 4 11:53:14 Melanocytic nevus of trunk 569958421 Active 2020 Reed Alcala MD [address], [place], [address], [facility] 1 09:12:21 History of Malignant melanoma 536243217 Active 2020 Reed Alcala MD [address] [facility] [address], [place], [address], [facility] 1 09:12:23 History of squamous cell carcinoma in situ 1473439268586 5 Active 2020 Reed Alcala MD [address] [facility] [address], [place], [address], [facility] 1 09:12:25 Screening for malignant neoplasm of skin Active 2020 Reed Alcala MD [address] [facility] [address], [place], [address], [facility] 1 09:12:28 Keratosis 548637309 Active 2020 Reed Alcala MD [address], [place], [address], [facility] 1 09:12:30 Actinic keratosis 160075345 Active 2020 Reed Alcala MD [address], [place], [address], [facility] 1 12:05:02 Problem Notes None recorded. Procedures Surgical History Date Name Laterality Status Provider Name and Address Organization Details Recorded Time 05/06/2019 Shave Biopsy active Reed vega MD [address], [place], [address], [facility] 05/06/2019 13:33:22 Imaging Results None recorded. Procedure Notes None recorded. Medical Equipment None Reported. Allergies No known drug allergies Medications Name Sig Start Date Stop Date Status Note LastModified by Organization Details LastModified Time quetiapine 25 mg tablet active Not Available Not Available No t Available celecoxib 200 mg capsule TAKE 1 CAPSULE BY MOUTH TWICE A DAY active Not Available Not Available No t Available cyclobenzaprin e 10 mg tablet active Not Available Not Availab le Not Available atorvastatin 40 mg tablet TAKE 1 TABLET BY MOUTH DAILY active Not Available Not Available No t Available megestrol 400 mg/10 mL (40 mg/mL) oral suspension active Not Available Not Available N ot Available donepezil 5 mg tablet active Not Available Not Available Not Available trazodone 50 mg tablet active Not Available Not Available No t Available aspirin 325 mg tablet TAKE 1 TABLET BY MOUTH TWICE DAILY FOR 30 DAYS active Not Available Not Available No t Available amiodarone 200 mg tablet active Not Available Not Available No t Available hydrocodone 5 mg-acetaminoph en 325 mg tablet TAKE 1 TABLET BY MOUTH EVERY 6 HOURS NEEDED FOR PAIN active Not Available Not Available No t Available famotidine 40 mg tablet active Not Available Not Available No t Available phentermine 37.5 mg tablet TAKE 1 TABLET BY MOUTH EVERY DAY active Not Available Not Available No t Available hydrocodone 10 mg-acetaminoph en 325 mg tablet TAKE 1 TABLET BY MOUTH EVERY 6 HOURS NEEDED FOR PAIN active Not Available Not Available No t Available sildenafil 100 mg tablet TAKE 1 TABLET BY MOUTH NEEDED active Not Available Not Available No t Available amoxicillin 500 mg tablet TAKE 1 TABLET BY MOUTH EVERY 8 HOURS active Not Available Not Available No t Available warfarin 4 mg tablet active Not Available Not Available Not Available ketorolac 10 mg tablet TAKE 1 TABLET BY MOUTH EVERY 6 HOURS NEEDED FOR PAIN active Not Available Not Available No t Available famotidine 20 mg tablet TAKE 1 TABLET BY MOUTH DAILY active Not Available Not Available No t Available temazepam 15 mg capsule TAKE 1 CAPSULE BY MOUTH AT BEDTIME active Not Available Not Available No t Available oxycodone-acet aminophen 10 mg-325 mg tablet TAKE 1 TABLET BY MOUTH EVERY 4 HOURS NEEDED FOR PAIN active Not Available Not Available No t Available imiquimod 5 % topical cream packet active Not Available Not Available Not Available cephalexin 500 mg capsule TAKE ONE CAPSULE BY MOUTH FOUR TIMES DAILY FOR 7 DAYS active Not Available Not Available No t Available esomeprazole magnesium 40 mg capsule,delaye d release TAKE 1 CAPSULE BY MOUTH EVERY MORNING active Not Available Not Available No t Available metoprolol tartrate 50 mg tablet active Not Available Not Available Not Available indapamide 1.25 mg tablet active Not Available Not Availab le Not Available diclofenac sodium 75 mg tablet,delayed release TAKE 1 TABLET BY MOUTH TWICE DAILY active Not Available Not Available No t Available gabapentin 100 mg capsule active Not Available Not Available N ot Available oxycodone-acet aminophen 7.5 mg-325 mg tablet TAKE 1 TABLET BY MOUTH EVERY 6 HOURS NEEDED FOR PAIN active Not Available Not Available No t Available zolpidem 10 mg tablet active Not Available Not Available Not Available methylpredniso lone 4 mg tablets in a dose pack active Not Available Not Available No t Available albuterol sulfate HFA 90 mcg/actuation aerosol inhaler active Not Available Not Available Not Available SSD 1 % topical cream active Not Available Not Availabl e Not Available colchicine 0.6 mg tablet active Not Available Not Available No t Available hydromorphone 4 mg tablet active Not Available Not Available Not Available sennosides 25 mg tablet Take 2 tablets every day by oral route. active Not Available Not Available No t Available phentermine 37.5 mg capsule TAKE 1 CAPSULE BY MOUTH EVERY DAY active Not Available Not Available No t Available ramipril 10 mg capsule active Not Available Not Available Not Available escitalopram 20 mg tablet active Not Available Not Available Not Available ezetimibe 10 mg tablet TAKE 1 TABLET BY MOUTH ONCE DAILY active Not Available Not Available No t Available cyclobenzaprin e 5 mg tablet active Not Available Not Availabl e Not Available bupropion HCl XL 150 mg 24 hr tablet, extended release active Not Available Not Available Not Available memantine 5 mg tablet TAKE 1 TABLET BY MOUTH TWICE DAILY active Not Available Not Available No t Available metoprolol tartrate 25 mg tablet TAKE 1/2 TABLET (12.5MG) BY MOUTH TWICE DAILY active Not Available Not Available No t Available nitrofurantoin monohydrate/ma crocrystals 100 mg capsule active Not Available Not Availab le Not Available duloxetine 20 mg capsule,delaye d release active Not Available Not Available No t Available duloxetine 60 mg capsule,delaye d release TAKE 1 CAPSULE BY MOUTH TWICE DAILY active Not Available Not Available No t Available eszopiclone 2 mg tablet active Not Available Not Available No t Available aspirin active Not Available Not Avail able Not Available Vitamin D3 active Not Available Not Av ailable Not Available Nexium active Not Available Not Availa ble Not Available quetiapine 50 mg tablet TAKE 1 TABLET BY MOUTH EVERY DAY AT NIGHT active Not Available Not Available No t Available levocetirizine 5 mg tablet active Not Available Not Available Not Available ferrous fumarate 325 mg (106 mg iron) tablet Take by oral route. active Not Available Not Available No t Available azelastine 205.5 mcg (0.15 %) nasal spray active Not Available Not Available Not Available Xarelto 20 mg tablet active Not Available Not Available Not Available Linzess 145 mcg capsule active Not Available Not Available Not Available Eliquis 5 mg tablet active Not Available Not Available Not Available Stimulant Laxative Plus 8.6 mg-50 mg tablet active Not Available Not Available Not Available Belsomra 20 mg tablet active Not Available Not Available Not Available Narcan 4 mg/actuation nasal spray active Not Available Not Available Not Available Xarelto 2.5 mg tablet TAKE 1 TABLET BY MOUTH TWICE DAILY active Not Available Not Available No t Available COVID-19 test specimen collection TEST DIRECTED active Not Available Not Available No t Available Vitals None Recorded Social History None recorded. Functional Status None recorded. Mental Status None recorded. Family History Nothing Reported. Medical History No medical history recorded. Past Encounters Encounter ID Performer Location Encounter Start Date Encounter Closed Date Diagnosis/Indication Diagnosis SNOMED-CT Code Diagnosis ICD10 Code Diagnosis Note [id number] Reed Alcala MD Main Office [address] [facility] [address] [place] [address] 05/01/2021 09:24:32 05/01/2021 09:38:38 History of Malignant melanoma 042629251 Z85.89 Seborrheic keratosis 394 178105 L82.1 r upper back Scar 101755143 L90.5 [id number] Reed Alcala MD Main Office [address] [facility] [address] [place] [address] 06/11/2023 09:38:59 06/11/2023 09:52:07 History of Malignant melanoma 547961947 Z85.89 History of squamous cell carcinoma in situ 9218585621 9105 Z86.008 Abrasion of face 5661905 08 S00.81XA Screening for malignant neoplasm of skin 852460369 Z12.83 Health Concerns Section Related Observation LastModified by Organization Detai ls LastModified Time None Recorded Concern Status LastModified by Organization Details LastModified Time None Recorded Advance Directives Directive None Recorded Payers Insurance Date Sequence Insurance Name Policy Number Policy Pollock Covered Member ID Pollock Member ID Guarantor Name 06/11/2024 2 [employer] Nix [id number] Hu Nix 06/11/2024 1 [place] Hu Nix [id number] Hu Nix 2024 2 [place]550 Hu Nix [id number] [employer] N[employer] Notes Date Note Type Note Provider Name and Address Organization Details Recorded Time 06/11/2023 text/html Fu melanoma, skin check. recently fell, has some foy and bruises but doing fine otherwise. Reed Alcala MD [address] [facility] [address], [place], [address], [facility] 06/11/2023 09:51:11
--- OUTSIDE RECORDS SUMMARY | 2025-02-07 04:45 | XMS_ITS | Referral Summary ---
Author Organization [facility] Address [address] [place] [address] Care Team Providers Care Job Site Supervisor Name Role Phone Joon Hightower MD Primary Care Provider [phone]- [phone] Adelso Guerrero MD Unavailable Matias Gomez NP Unavailable Khris Paiz MD Unavailable Sonny Diamond MD Unavailable Jody Sullivan DO Unavailable Matt Hickey MD Unavailable Encounters Date Type Department Care Team Description 12/14/2024 8:53 AM CDT - 12/14/2024 11:59 PM CDT Hospital Encounter 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 (Primary Dx); Atrial fibrillation with RVR (HCC); Hx of CABG from Last 3 Months Allergies Active Allergy Reactions Criticality Noted Date Comments Adhesive Rash,Redness Medium 08/04/2019 Use paper tape Gabapentin Hallucinations Medium 08/27/2023 Medications aspirin 81 mg enteric coated tablet Take 1 tablet (81 mg total) by mouth daily Active diclofenac DR (VOLTAREN) 75 mg EC tablet Take 1 tablet (75 mg total) by mouth 4 Active atorvastatin (LIPITOR) 40 mg tablet Take 1 tablet (40 mg total) by mouth nightly 30 tablet [address] (CYMBALTA) 60 mg capsule Take 1 capsule (60 mg total) by mouth 2 (two) times a day 60 capsule [address] (NexIUM) 40 mg capsule Take 1 capsule (40 mg total) by mouth every morning 30 capsule 4 Active metoprolol tartrate (LOPRESSOR) 50 mg immediate release tabletIndicatio ns:Atrial flutter, unspecified type (HCC) Take 1 tablet (50 mg total) by mouth 2 (two) times a day 180 tablet 3 4 025 Active polyethylene glycol (MIRALAX) 17 gram/dose bulk powderIndicatio ns:constipation Take 17 g by mouth daily 510 g 4 Active HYDROcodone-telly taminophen (NORCO) 10-325 mg per tabletIndicatio ns:Pain Take 1 tablet by mouth every 6 (six) hours as needed for pain 120 tablet 5 Active HYDROcodone-telly taminophen (NORCO) 10-325 mg per tabletIndicatio ns:Pain Take 1 tablet by mouth every 6 (six) hours as needed for pain 120 tablet 5 025 Active rivaroxaban (Xarelto) 20 mg tablet TAKE 1 TABLET BY MOUTH DAILY WITH DINNER 90 tablet 5 Active rivaroxaban (XARELTO) 20 mg tablet Take 1 tablet (20 mg total) by mouth daily with dinner 30 tablet 3 5 025 Discontinued Active Problems Problem Noted Date Diagnosed Date [...] n ative heart with stable angina pectoris ([facility]) 08/03/2019 Overview (08/03/2019): Added automatically from request for surgery [id number] Atrioventricular block, first degree 06/14/2019 Squamous cell carcinoma in situ (SCCIS) 05/18/20 19 Assessment & Plan (05/31/2019 12:48 PM LICENSED EMBALMER): Left midback Pathology results and diagnosis discussed. [...] (04/04/2021): mom has sotomayor surgery and pacer Resolved Problems Problem Noted Date Diagnosed Date Resolved Date Melanoma of back 05/17/2019 07/16/2019 Assessment & Plan (05/31/2019 12:49 PM LICENSED EMBALMER): Left upper back, 2 weeks status post [...] Dr. Jose. Please see separate procedure note. Immunizations Immunization Administration Dates Next Due Influenza, Quadrivalent, Hig h Dose, Preservative Free, Intrr 05/22/2021 Influenza, Trivalent, High D ose, Split, Preservative Free, Intramuscular 07/15/2024(Deferred: Other),07/15/2024 Pneumococcal Conjugate PCV 13 08/20/2015 Tdap 03/18/2022 Social History Tobacco Use Types Packs/Day Years Used Date Smoking Tobacco: Every Day Cigarettes Smokeless Tobacco: Never Tobacco Cessation:Ready to Q uit: Not Asked; Counseling Given: Not Answered Comments:A couple daily Alcohol Use Standard Drinks/Week Comments No 0 (1 standard drink = 0.6 oz pur e alcohol) social [employer] Utilities Answer Date Recorded In the past 12 months has e [employer], gas, oil, or water [employer] threatened to shut off services in your [...] often do you attend chur ch or denominational services? Never 07/07/2024 Do you belong to any clubs o r organizations such as denominational groups, unions, fraternal or athletic groups, or [...] place to sleep or slept in a snf (including now)? No 08/28/2023 Housing Stability Vital Sign Answer Haris e Recorded In the last 12 months, was t here a time when you were not able to pay the mortgage or rent on time? No 07/07/2024 In the past 12 months, how m any times have you moved where you were living? 0 07/07/2024 At any time in the past 12 m [facility], were you homeless or living in a snf (including now)? No 07/07/2024 Personal Safety Answer Date Recorded Have you ever been in or are you currently in a harmful physical or emotional relationship or is someone making you feel afraid or unsafe? Denies 07/06/2024 Sex and Gender Information Value Date Recorded Sex Assigned at Not on file Legal Sex Male 11:56 PM LICENSED EMBALMER Gender Identity Not on file Sexual Orientation Not on file Occupation Industry Job Start Date Job End Date retired Not on file Not on file Not on file Last Filed Vital Signs Vital Sign Reading Time Taken Comments Blood Pressure 109/76 12/14/2024 9:14 AM CDT Pulse 101 12/14/2024 9:14 AM CDT Temperature 36.5 C (97.7 F) 10/07/2024 10:15 AM CDT Respiratory Rate 18 12/14/2024 9:14 AM CDT Oxygen Saturation 98% 12/14/2024 9:14 AM CDT Inhaled Oxygen Concentration - - Weight 76.1 kg (167 lb 12.8 oz) 025 11:06 AM CDT Height 170.2 cm (5' 7) 11/24/2024 11:0 6 AM CDT Body Mass Index 26.28 11/24/2024 11:06 AM CDT Plan of Treatment Not on file Medical Devices Implanted Type Area Stove Fitter Device Identifier Shelf Expiration Date Model / Serial / Lot Spinal Cord Stimulator Explanted:08/29 by Shabbir Parkinson MD (Quantity not on file) Spinal Cord Stimulator N/A: Back [employer] [id number] Palacos R+G High Viscosity Cement Bone Gentamicin Arthroplasty - [id number] Implanted:Qty: 1 on 05/21/2021 by Adelso Guerrero MD at [facility] Right: Knee [employer] [id number] 09/25/2023 [id number] / / [id number] [employer] [id number] Persona Cruciate Retaining Knee Right 6 Narrow Component Femoral - [id number] Implanted:Qty: 1 on 05/21/2021 by Adelso Guerrero MD at [facility] Right: Knee [employer] [id number] 04/09/2030 [id number] / / [id number] [employer] [id number] Persona Natural Tibia Stem Knee Right 5d D Baseplate Tibial - [id number] Implanted:Qty: 1 on 05/21/2021 by Adelso Guerrero MD at [facility] Right: Knee [employer] [id number] 12/29/2030 [id number] / / [id number] [employer] [id number] Persona 29mm Knee Component Patellar All Poly Latex Free - [id number] Implanted:Qty: 1 on 05/21/2021 by Adelso Guerrero MD at [facility] Right: Knee [employer] [id number] 03/19/2029 [id number] / / [id number] [employer] [id number] Persona 10mm Knee Right 6-7 C-D Insert Articular Vivacit-E - [id number] Implanted:Qty: 1 on 05/21/2021 by Adelso Guerrero MD at [facility] Right: Knee [employer] [id number] 08/26/2025 [id number] / / [id number] Procedures Procedure Name Priority Date/Time Associated Diagnosis Comments PSA SCREEN Add-On 07/06/2024 9:52 PM LICENSED EMBALMER US ABDOMINAL AORTIC ANEURYSM SCREENING Schedule Routine, Read Routine (OP Routine) 07/08/2019 SERUM HEPATITIS C AB Routine 03/20/2016 2:17 PM CDT from Last 3 Months or Most Recently Relevant to Health Maintenance Results * PSA screen (07/06/2024 9:52 PM LICENSED EMBALMER) PSA-Total 0.02 <=6.20 ng/mL Comment: Interpretive Data AGE SEX REFERENCE INTERVAL 0 minutes-150 years Female None 0 minutes-49 years Male None 50-59 years Male 0-3.90 60-69 years Male 0-5.40 70-79 years Male 0-6.20 80-150 years Male 0-6.20 The Josiah PSA Total assay procedure was used. Results from different manufacturers or methods may not be comparable. Serial testing should be performed using the same method. Current interpretive data last revised 21. Blood 07/06/2024 9:52 PM LICENSED EMBALMER 07/06/2024 11:16 PM LICENSED EMBALMER us Saray Agudelo MD LAB BLOOD ORDERABLES Final Re sult [facility] [address] Department of [employer] [place] [address] * US Abdominal Aortic Aneurysm Screening (07/08/2019) Anatomical Region Laterality Modality Abdomen Ultrasound us Historical Provider MD MARK US PROCEDURES Final R esult * Serum Hepatitis C ab (03/20/2016 2:17 PM CDT) HCV ab Negative Negative CDR HISTOR ICAL RESULTS Serum 03/20/2016 2:17 PM CDT us Paris Slaughter MD LAB BLOOD ORDERABLES Final Resul t CDR HISTORICAL RESULTS from Last 3 Months or Most Recently Relevant to [place] [address] MEDICARE [facility] MED[place] [address] [address] [place] [address] [address] [facility] [place] [address] [place] [address] MEDICARE [facility] [address] Advance Directives For more information, please contact: [phone] Documents on File Type Date Recorded Patient Senior Bioinformatics Specialist Expl anation ADVANCE DIRECTIVE 06/19/2021 4:15 PM ATHL ETICO PT P.O.C SIGNED/FAXED * Full Code (Latest Code Status on File) Date Activated Date Inactivated Comments 07/06/2024 9:37 PM 07/15/2024 7:58 PM * Full Code Date Activated Date Inactivated Comments 07/06/2024 9:35 PM 07/06/2024 9:37 PM * Full Code Date Activated Date Inactivated Comments 08/28/2023 1:50 AM 08/29/2023 9:19 PM * Full Code Date Activated Date Inactivated Comments 10/25/2021 11:32 AM 10/27/2021 4:47 PM * Full Code Date Activated Date Inactivated Comments 05/21/2021 12:50 PM 05/23/2021 8:30 PM Healthcare Agents on File Name Relationship Healthcare Agent Renaehi p Communication Asia Yanez Spouse Health Care Agent Care Teams Job Site Supervisor Relationship Specialty Start Date End Date Joon Hightower MD [address] [place] [address] PCP - General 03/20/16 Adelso Guerrero MD [address] [place] [address] Surgeon Orthopedic Surgery 05/22/21 Matias Gomez, UNIVERSITY DEMONSTRATOR [address] [place] [address] Nurse Practitioner Pain Management 10/27/21 Khris Paiz MD [address] [place] [address] Consulting Physician Infectious Diseases 07/15/24 Sonny Diamond MD [address] [place] [address] Consulting Physician Neurosurgery 07/15/24 Jody Sullivan DO [address] [place] [address] Consulting Physician Cardiology 07/15/24 [place] [address] [place] [address] Consulting Physician Pain Management 12/14/24
--- OUTSIDE RECORDS SUMMARY | 2025-02-07 04:45 | XMS_ITS ---
Author Organization [facility] Address [address] [place] [address] [place] [address] Care Team Providers Care Supervisor Opening And Picking Name Role Phone Yuridia NUNEZ, ANIBAL Primary Care Provider Brianne vailable Shabbir Parkinson Unavailable [phone] REASON FOR VISIT Post Operative Phone Call Encounters Encounter Location Date Provider Diagnosis [facility] [address] [place] [address] 09/18/2023 Shabbir Parkinson PLAN OF TREATMENT No Information
--- OUTSIDE RECORDS SUMMARY | 2025-02-07 04:45 | XMS_ITS | Clinical Summary ---
Author Organization [facility] Address [address] [place] [address] Care Team Providers Care Yolk Spray Drier Name Role Phone Joon Hightower MD Primary Care Provider +1- [phone] Adelso Guerrero MD Unavailable Matias Gomez NP Unavailable Khris Paiz MD Unavailable Sonny Diamond MD Unavailable Jody Sullivan DO Unavailable Matt Hickey MD Unavailable Allergies Active Allergy Reactions Criticality Noted Date [...] 11/06/2021 Neoplasm of uncertain behavior of skin 2 Atrial flutter, unspecified type 10/25/2021 Hx of CABG 10/11/2021 Atrial flutter 10/11/2021 Therapeutic opioid induced constipation 10/10/19 22 History of depression 05/21/2021 History of fibromyalgia [...] n ative heart with stable angina pectoris ([facility]) 08/03/2019 Overview (08/03/2019): Added automatically from request for surgery [id number] Atrioventricular block, first degree 06/14/2019 Squamous cell carcinoma in situ (SCCIS) 05/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 [...] 07/16/2019 Assessment & Plan (05/31/2019 12:49 PM SCHOOL AGE PROGRAM ASSOCIATE): Left upper back, 2 weeks status post [...] Dr. Jose. Please see separate procedure note. Encounters Date Type Department Care Team Description 12/14/2024 8:53 AM CDT - 12/14/2024 11:59 PM CDT Hospital Encounter [facility] [address] [place] [address] Matias Gomez NP Chronic bilateral low back pain with bilateral sciatica (Primary Dx); Postlaminectomy syndrome, lumbar; Lumbosacral spondylosis without myelopathy; Myalgia; Spinal stenosis of lumbar region without neurogenic claudication Discharge Disposition: Discharge to home or self care 11/24/2024 10:45 AM CDT Office Visit [facility] [address] [place] [address] Bulmaro Olson MD Coronary artery disease of [place] artery of [place] heart with stable angina pectoris (Primary Dx); Atrial fibrillation with RVR (HCC); Hx of CABG from Last 3 Months Immunizations Immunization Administration Dates Next Due Influenza, Quadrivalent, Hig h Dose, Preservative Free, Intrr 05/22/2021 Influenza, Trivalent, High D ose, Split, Preservative Free, Intramuscular 07/15/2024(Deferred: Other),07/15/2024 Pneumococcal Conjugate PCV 13 08/20/2015 Tdap 03/18/2022 Surgical History Surgery Date Site/Laterality Comments HERNIA REPAIR Hernia repair TONSILLECTOMY Tonsillectomy PROSTATECTOMY BACK SURGERY lumbar BIOPSY back SKIN CANCER EXCISION from back X 2 CARDIAC CATHETERIZATION SPINAL CORD STIMULATOR IMPLANT nonfunctional FRACTURE SURGERY Right shoulder CORONARY ARTERY BYPASS GRAFT 08/09/2018 KNEE ARTHROPLASTY 05/21/2021 Right SPINE SURGERY 1996, 2005 Medical History Medical History Date Comments Hypertension Hypercholesteremia Arthritis Pneumonia Sinusitis MVP (mitral valve prolapse) Coronary artery disease of n ative heart with stable angina pectoris 08/03/2019 COPD (chronic obstructive pu lmonary disease) (HCC) GERD (gastroesophageal reflu x disease) Depression Fibromyalgia DDD (degenerative disc disea se), cervical all of his back CHF (congestive heart failure) (HCC) Sleep apnea Constipation due to opioid therapy Cancer (HCC) Prostate cancer (HCC) Melanoma (HCC) excised from wes k Carcinoma (HCC) on back, stage 1 , removed Tia 2002 TIA Heart disease Mitral Valve Prolapse Family History Medical History Relation Name Comments Cancer Brother Milton Prostate cancer Brother Milton Arthritis Daughter Christin Robles Fibromyalgia Daughter Christin Robles Osteoarthritis Daughter Christin Robles Rheum arthritis Daughter Christin Robles Rheumatoid a rthritis; childhood arthritis Daughter Christin Robles Arthritis Father Zafar Blood cancer Father Zafar Depression Father Zafar Hearing loss Father Zafar Stroke Father Zafar Alzheimer's disease Mother Denisse Arthritis Mother Denisse Cancer Mother Denisse Colon cancer Mother Denisse Diabetes Mother Denisse Gout Mother Denisse Heart attack Mother Denisse Heart disease Mother Denisse Hypertension Mother Denisse Other Mother Denisse Pacemaker. Open heart surgery. Stroke Mother Denisse Vision loss Paternal Grandfather [place] Relation Name Status Comments Brother Milton Alive Daughter Christin Robles Father Zafar Mother Denisse Paternal Grandfather [place] Sister Alive Two sisters Social History Tobacco Use Types Packs/Day Years Used Date Smoking Tobacco: Every Day Cigarettes Smokeless Tobacco: Never Tobacco Cessation:Ready to Q uit: Not Asked; Counseling Given: Not Answered Comments:A couple daily Alcohol Use Standard Drinks/Week Comments No 0 (1 standard drink = 0.6 oz pur e alcohol) social [facility] Utilities Answer Date Recorded In the past [...] often do you attend chur ch or rastafarian services? Never 07/07/2024 Do you belong to any clubs o r organizations such as worship groups, unions, fraternal or athletic groups, or [...] place to sleep or slept in a mcfp (including now)? No 08/28/2023 Housing Stability Vital Sign Answer Haris e Recorded In the last 12 months, was t here a time when you were not able to pay the mortgage or rent on time? No 07/07/2024 In the past 12 months, how m any times have you moved where you were living? 0 07/07/2024 At any time in the past 12 m [facility], were you homeless or living in a mcfp (including now)? No 07/07/2024 Personal Safety Answer Date Recorded Have you ever been in or are you currently in a harmful physical or emotional relationship or is someone making you feel afraid or unsafe? Denies 07/06/2024 Sex and Gender Information Value Date Recorded Sex Assigned at Not on file Legal Sex Male 11:56 PM SCHOOL AGE PROGRAM ASSOCIATE Gender Identity Not on file Sexual Orientation Not on file Occupation Industry Job Start Date Job End Date retired Not on file Not on file Not on file Obstetrics History Last Filed Vital Signs Vital Sign Reading [...] 11/24/2024 11:06 AM CDT Plan of Treatment Health Maintenance Due Date Last Done Comments Hepatitis B Screening 1966 Zoster Vaccine (1 of 2) 1998 Well Visit 65+ 2013 Pneumococcal vaccine 65+ (2 of 2 - PPSV23) 10/15/2015 08/20/2015 Depression Screening 04/04/2022 04/04/2021, 04/04/2021, 11/15/2018, Additional history exists Fall Risk Assessment 12/14/2025 12/14/2024, 12/17/2023, 09/03/2023 DTaP/Tdap/Td Vaccine (2 - Td or Tdap) 03/18/2032 03/18/2022 Hepatitis C Screening Completed 03/20/2016 Abdominal Aortic Aneurysm (A AA) Screen Completed 07/08/2019, 03/22/2019, 09/01/2018 Prostate Cancer Screening-PSA Discontinued 07/06/2024 Influenza Vaccine Completed 07/15/2024, 05/22/2021 Medical Devices Implanted Type Area Gardening Supervisor Device Identifier Shelf Expiration Date Model / Serial / Lot Spinal Cord Stimulator Explanted:08/29 by Shabbir Parkinson MD (Quantity not on file) Spinal Cord Stimulator N/A: Back [employer] by [employer] [id number] Palacos R+G High Viscosity Cement Bone Gentamicin Arthroplasty - [id number] Implanted:Qty: 1 on 05/21/2021 by Adelso Guerrero MD at [facility] Right: Knee [employer] [id number] 09/25/2023 [id number] / / [id number] [employer] [id number] Persona Cruciate Retaining Knee Right 6 Narrow Component Femoral - [id number] Implanted:Qty: 1 on 05/21/2021 by Adelso Guerrero MD at [facility] Right: Knee [employer] [id number] 04/09/2030 [id number] / / [id number] [employer] [id number] Persona Natural Tibia Stem Knee Right 5d D Baseplate Tibial - [id number] Implanted:Qty: 1 on 05/21/2021 by Adelso Guerrero MD at [facility] Right: Knee [employer] [id number] 12/29/2030 [id number] / / [id number] [employer] [id number] Persona 29mm Knee Component Patellar All Poly Latex Free - [id number] Implanted:Qty: 1 on 05/21/2021 by Adelso Guerrero MD at [facility] Right: Knee [employer] [id number] 03/19/2029 [id number] / / [id number] [employer] [id number] Persona 10mm Knee Right 6-7 C-D Insert Articular Vivacit-E - [id number] Implanted:Qty: 1 on 05/21/2021 by Adelso Guerrero MD at [facility] Right: Knee [employer] [id number] 08/26/2025 [id number] / / [id number] Procedures Procedure Name Priority Date/Time Associated Diagnosis Comments PSA SCREEN Add-On 07/06/2024 9:52 PM SCHOOL AGE PROGRAM ASSOCIATE US ABDOMINAL AORTIC ANEURYSM SCREENING Schedule Routine, Read Routine (OP Routine) 07/08/2019 SERUM HEPATITIS C AB Routine 03/20/2016 2:17 PM CDT from Last 3 Months or Most Recently Relevant to Health Maintenance Results * PSA screen (07/06/2024 9:52 PM SCHOOL AGE PROGRAM ASSOCIATE) PSA-Total 0.02 <=6.20 ng/mL Comment: Interpretive Data [...] last revised 21. Blood 07/06/2024 9:52 PM SCHOOL AGE PROGRAM ASSOCIATE 07/06/2024 11:16 PM SCHOOL AGE PROGRAM ASSOCIATE us Saray Agudelo MD LAB BLOOD ORDERABLES Final Re sult [facility] [address] [place] [address] * US Abdominal Aortic Aneurysm Screening (07/08/2019) Anatomical Region Laterality Modality Abdomen Ultrasound us Historical Provider IMG US PROCEDURES Final R esult * Serum Hepatitis C ab (03/20/2016 2:17 PM CDT) HCV ab Negative Negative CDR HISTOR ICAL RESULTS Serum 03/20/2016 2:17 PM CDT us Paris Slaughter MD LAB BLOOD ORDERABLES Final Resul t CDR HISTORICAL RESULTS from Last 3 Months or Most Recently Relevant to Health [place] [address] MEDICARE [facility] [employer] [employer] [place] [address] MEDICARE [facility] MEDICARE [facility] MEDICARE [place] [address] Advance Directives For more information, please contact: [phone] Documents on File Type Date Recorded Patient Sonography Technician Expl anation ADVANCE DIRECTIVE 06/19/2021 4:15 PM [...] Agents on File Name Relationship Healthcare Agent Relationshi p Communication Asia Yanez Spouse Health Care Agent Care Teams Yolk Spray Drier Relationship Specialty Start Date End Date Joon Hightower MD [address] [place] [address] PCP - General 03/20/16 Adelso Guerrero MD [address] [place] [address] Surgeon Orthopedic Surgery 05/22/21 [place] [address] [place] [address] Nurse Practitioner Pain Management 10/27/21 Khris Paiz MD [address] [place] [address] Consulting Physician Infectious Diseases 07/15/24 Sonny Diamond MD [address] [place] [address] Consulting Physician Neurosurgery 07/15/24 Jody Sullivan DO [address] [place] [address] Consulting Physician Cardiology 07/15/24 [place] [address] [place] [address] Consulting Physician Pain Management 12/14/24
--- NOTE | 2025-02-07 05:05 | ED.EYEPROB ---
HPI - Eye Problem General Chief complaint: Eye Problems Stated complaint: poked a stick in my eye Time Seen by Provider: 02/07/25 04:55 History of Present Illness HPI Narrative: Patient is a 74-year-old male who presents to the emergency department this evening complaining of right eye pain. States that he accidentally scratched his eye with a stick on Friday night and since then he has been trying to wait it out to see if his pain would go away but it has not. He has been taking hydrocodone at home which she has for his chronic back pain with no relief. Patient does not wear any contact lenses and denies any additional symptoms or concerns. Related Data Allergies Allergy/AdvReac Type Severity Reaction Status Date / Time No Known Allergies Allergy Verified 02/27/24 06:25 Review of Systems Review of Systems: All systems are reviewed and are negative unless stated otherwise in the HPI. [facility] Past Medical History Medical History Afib GERD (gastroesophageal reflux disease) Hyperlipidemia Hypertension Surgical History Surgical History Hx of CABG Exam Narrative: General: Alert, awake, afebrile, in no acute distress. HEENT: PERRL, no rhinorrhea, no post nasal drip, oropharynx clear, right corneal abrasion horizontally linear in the 12 o'clock position measuring approximately 1 mm by 3 mm with fluorescent uptake, no pain with extraocular movement, no chemosis, negative Nestor sign Neck: Trachea midline, no JVD, no lymphadenopathy. Cardiovascular: Regular rate and rhythm, no murmurs, rubs or gallops, no peripheral edema. Respiratory: Clear to auscultation bilaterally, no tachypnea, no wheezing, no rhonchi, no rubs, no respiratory distress. Abdomen: Soft, nontender, nondistended, no rebound, no guarding, no peritoneal signs. Musculoskeletal: No joint swelling or deformity, normal muscle tone. Skin: No rashes or petechia, no signs of infection. Psychiatric: Alert and oriented, normal behavior and judgment for situation. Neurological: Alert and oriented to person, place, and time. Follows all commands. No focal deficits, speech is clear and fluent. MDM - Eye Problem MDM Narrative Medical decision making narrative: The patient was evaluated by myself in the emergency department. History is obtained from patient who is an independent historian and physical exam was performed. External medical records were reviewed at this time. Fluorescent dye exam did reveal a corneal abrasion and patient was informed that he will be started on ciprofloxacin eyedrops. He will need to follow-up with ophthalmology within the next 1-2 days and patient is agreeable. Differential diagnosis considerations include corneal abrasion, foreign body, ruptured globe. Comorbidities impacting this visit include none. I have evaluated and discussed social determinants of health with the patient that could potentially impact subsequent diagnosis and treatment plans. On repeat assessment of the patient, reevaluation revealed that the patient is doing well and is in no acute distress. Patient symptoms have improved since he arrived to our emergency department. Repeat vital signs were all reviewed and noted to be stable. Differential diagnosis and treatment plan were discussed with the patient at bedside. Patient agrees with discussion and after shared medical decision making agrees with discharge. All questions were answered to the patient's satisfaction. Patient will follow up with the [facility] in 1-2 days. Instructed to use the eyedrops that he was provided in the emergency department as instructed for the next 5 days. Patient was provided with strict return precautions and instructed to return to the emergency department if any new or worsening symptoms develop. The patient was discharged in stable condition. Discharge Plan Discharge Clinical Impression: Corneal abrasion Patient Disposition: Home Condition: Improved Instructions: Antibiotic Form, Corneal Abrasion (DC) Additional Instructions: Please follow-up with the [facility] within the next 1-2 days regarding your right corneal abrasion. Use antibiotic eye drops that you were provided in the emergency department as instructed. Return to the emergency department if any new worsening symptoms develop. Antibiotic eyedrops: Used 2 drops to the right eye 4 times daily for 5 days Patient Language: Pashto Follow-up/Referrals: [facility] [Outside] - 1 Day UNKNOWN,DOCTOR [Primary Care Provider] - Time of Disposition: 05:07
--- OUTSIDE RECORDS SUMMARY | 2025-02-07 05:13 | XMS_ITS | Clinical Summary ---
Author Organization [facility] [employer] Address [address] [place] [address] Care Team Providers Care Secondary English Teacher Name Role Phone Unavailable Primary Care Provider Unavailabl e Source Comments [facility] [employer],non-owned Affiliates and Associated Physician Practices is amultiple site organization consisting of ambulatory clinics and hospital sitesin [place], [place], [place] and [place]. This disclosure is being madepursuant to the Care Everywhere program and may not contain all information available regarding this patient. Last updated 18.[facility] [employer] Allergies No known active allergies Medications * [...] on file Legal Sex Male 8:41 AM SILK SPOTTER Gender Identity Not on file Sexual Orientation [...] age to complete this topic Insurance MEDICARE [facility] Advance Directives * FULL RESUSCITATION (Latest Code Status on File) Date Activated Date Inactivated Comments 03/27/2011 6:37 PM 03/29/2011 12:40 AM
--- OUTSIDE RECORDS SUMMARY | 2025-02-07 05:13 | XMS_ITS ---
Author Organization [facility] Address [address] [place] [address] Care Team Providers Care Manager Cardiac Cath Name Role Phone Joon Hightower MD Primary Care Provider [phone] Adelso Guerrero MD Unavailable Matias Gomez NP Unavailable [phone] Khris aPiz MD Unavailable Sonny Diamond MD Unavailable Jody [...] n ative heart with stable angina pectoris ([facility]) 08/03/2019 Overview (08/03/2019): Added automatically from request for surgery [id number] Atrioventricular block, first degree 06/14/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 [...] 07/16/2019 Assessment & Plan (05/31/2019 12:49 PM POLYSOMNOGRAPH TECH): Left upper back, 2 weeks status post [...]
--- OUTSIDE RECORDS SUMMARY | 2025-02-07 05:13 | XMS_ITS | Clinical Summary ---
Author Organization [facility] Address [address] [place] [address] Care Team Providers Care Plant Operator Name Role Phone Unavailable Primary Care Provider Unavailabl e Social History Tobacco Use Types Packs/Day Years Used Date Smoking Tobacco: Never Assessed Sex and Gender Information Value Date Recorded Sex Assigned at Not on file Legal Sex Male 7:42 PM SUPERINTENDENT OF GENERATION Gender Identity Not on file Sexual Orientation [...]
--- OUTSIDE RECORDS SUMMARY | 2025-02-07 05:13 | XMS_ITS | Encounter Summary ---
Author Organization [facility] Address [address] [facility] [place] [address] Care Team Providers Care Hand Loom Weaver Name Role Phone Joon Hightower MD Unavailable [phone] Encounter Details Date Type Department Care Team (Late st Contact Info) Description 05/14/2019 Lab Requisition [facility] Care DermPath Lab [address] [place] [id number] Reed Alcala MD [facility] [id number] Social History Tobacco Use Types Packs/Day Years Used Date Smoking Tobacco: Every Day Cigarettes 0.3 35 Smokeless Tobacco: Never Alcohol Use Standard Drinks/Week Comments Yes 0 (1 standard drink = 0.6 oz pur e alcohol) Sex and Gender Information Value Date Recorded Sex Assigned at Not on file Legal Sex Male 8:41 AM PRESSURE TESTER Gender Identity Not on file Sexual Orientation Not on file documented as of this encounter Plan of Treatment Not on file documented as of this encounter Procedures Procedure Name Priority Date/Time Associated Diagnosis Comments DERMATOPATHOLOGY Routine 05/13/2019 12:0 0 AM CDT documented in this encounter Results * DERMATOPATHOLOGY (05/13/2019 12:00 AM CDT) Case Report Dermatopathology Report Case: [id number] Authorizing Provider: Reed Alcala MD Collected: 05/13/2019 12:00 AM Ordering Location: [facility] DermPath Lab Received: 05/14/2019 09:41 AM Pathologist: [...] specimen consists of a shave biopsy measuring [id number]. Jar 0. 12:58 PM CDT DERMATOPATHOLOGY LABORATORY [...] characteristic determined by the Dermatopathology Laboratory at [facility], directed by Dr. Jair Carrasquillo. These tests need not be, and therefore are not, approved by the [place] Food and Drug Administration. The tests are used for clinical purposes. Billing Codes Specimen Charges Stain Charges 12635 1 12:58 PM CDT DERMATOPATHOLOGY LABORATORY Embedded Images 12:58 PM CDT DERMATOPATHOLOGY LABORATORY Pathology/Cytolog y TISSUE SPECIMEN FROM SKIN / Unknown 05/13/2019 05/14/2019 9:41 AM CDT Reed Alcala MD LAB - PATHOLOGY/CYTOLOGY ORDERAB LES Final Result DERMATOPATHOLOGY LABORATORY [facility] - Department of Dermatology [address] [place] [address], 5th Floor Lab [address] [phone] documented in this encounter Visit Diagnoses Not on filedocumented in this encounter Care Teams Hand Loom Weaver Relationship Specialty Start Date End Date Joon Hightower MD [address] [place] [id number] PCP - Attributed-MSSP 07/28/20 08/16/21 documented as of this encounter
--- OUTSIDE RECORDS SUMMARY | 2025-02-07 05:13 | XMS_ITS | Encounter Summary ---
Author Organization [facility] Address [address] [facility] [place] [address] Care Team Providers Care Entry Level Civil Engineer Name Role Phone Unavailable Primary Care Provider Unavailabl e Encounter Details Date Type Department Care Team (Late st Contact Info) Description 12/05/2021 Lab Requisition [facility] DermPath Lab [address] [place] [address] Reed Alcala MD [address] [place] [phone] Social History Tobacco Use Types Packs/Day Years Used Date Smoking Tobacco: Every Day Cigarettes 0.3 35 Smokeless Tobacco: Never Alcohol Use Standard Drinks/Week Comments Yes 0 (1 standard drink = 0.6 oz pur e alcohol) Sex and Gender Information Value Date Recorded Sex Assigned at Not on file Legal Sex Male 8:41 AM SENIOR SOFTWARE SYSTEMS ENGINEER Gender Identity Not on file Sexual Orientation Not on file documented as of this encounter Plan of Treatment Not on file documented as of this encounter Procedures Procedure Name Priority Date/Time Associated Diagnosis Comments DERMATOPATHOLOGY Routine 12/04/2021 12:0 0 AM CDT documented in this encounter Results * DERMATOPATHOLOGY (12/04/2021 12:00 AM CDT) Case Report Dermatopathology Report Case: [id number] Authorizing Provider: Reed Alcala MD Collected: 12/04/2021 12:00 AM Ordering Location: [facility] DermPath Lab Received: 12/05/2021 08:21 AM Pathologist: [...] specimen consists of a shave biopsy measuring [id number]. Jar 0. 4:22 PM T DERMATOPATHOLOGY LABORATORY [...] determined by the Dermatopathology Laboratory at [facility], directed by Dr. Jair Carrasquillo. These tests need not be, and therefore are not, approved by the [place] Food and Drug Administration. The tests are used for clinical purposes. Billing Codes Specimen Charges Stain Charges 99993 1 79696 1 2 4:22 PM CDT DERMATOPATHOLOGY LABORATORY Embedded Images 2 4:22 PM CDT DERMATOPATHOLOGY LABORATORY Pathology/Cytolog y TISSUE SPECIMEN FROM SKIN / Unknown 12/04/2021 12/05/2021 8:21 AM CDT us Reed Alcala MD LAB - PATHOLOGY/CYTOLOGY ORDERAB LES Final Result DERMATOPATHOLOGY LABORATORY [facility] - Department of Dermatology [facility] [address] [place] [address], [address] [phone] documented in this encounter Visit Diagnoses Not on filedocumented in this encounter
--- OUTSIDE RECORDS SUMMARY | 2025-02-07 05:13 | XMS_ITS | Encounter Summary ---
Author Organization [facility] Address [address] [place] [address] Care Team Providers Care Cage Tender Name Role Phone Joon Hightower MD Primary Care Provider [phone] Khushi Aleman RN Unavailable Unavailab Adelso Helm MD Unavailable [phone] Matias Gomez NP Unavailable [phone] Reason for Visit * Diagnostic Imaging (Routine) - Closed Specialty Diagnoses / Procedures Referred By Contac t Referred To Contact Diagnoses Status post right knee replacement Procedures XR Knee Right 3 View Adelso Guerrero MD Phone: tel: fax: [facility] Referral ID Status Reason Start Date Expiration Date Visits Re quested Visits Authorized [id number] Closed 05/14/2023 06/12/2024 1 1 Encounter Details Date Type Department Care Team (Late st Contact Info) Description 05/14/2023 10:11 AM CDT Hospital Encounter [facility] [address] [address] Social History Tobacco Use Types [...] often do you attend chur ch or nondenominational services? Never 07/07/2024 Do you belong to any clubs o r organizations such as roman catholic groups, unions, fraternal or athletic groups, or [...] place to sleep or slept in a custodial (including now)? No 08/28/2023 Housing Stability Vital Sign Answer Haris e Recorded In the last 12 months, was t here a time when you were not able to pay the mortgage or rent on time? No 07/07/2024 In the past 12 months, how m any times have you moved where you were living? 0 07/07/2024 At any time in the past 12 m [facility], were you homeless or living in a custodial (including now)? No 07/07/2024 Personal Safety Answer Date Recorded Have you ever been in or are you currently in a harmful physical or emotional relationship or is someone making you feel afraid or unsafe? Denies 07/06/2024 Sex and Gender Information Value Date Recorded Sex Assigned at Not on file Legal Sex Male 11:56 PM MARKETING ACCOUNT MANAGER Gender Identity Not on file Sexual [...] on one occasion? Weekly 07/07/2024 2:17 PM MARKETING ACCOUNT MANAGER Laura Ellsworth RN documented as of [...] COVID: Suspected 08/28/2023 08/28/2023 08/28/2023 9:34 AM MARKETING ACCOUNT MANAGER COVID: Suspected 07/06/2024 07/06/2024 07/06/2024 12:11 PM MARKETING ACCOUNT MANAGER documented as of this encounter Care Teams Cage Tender Relationship Specialty Start Date End Date Jono Hightower MD [address] [place] [address] PCP - General 03/20/16 Khushi Aleman RN Registered Nurse 05/11/19 08/24/24 Adelso Guerrero MD Surgeon Orthopedic Surgery 05/22/21 [place] [address] [facility] [address] [place] [address] Nurse Practitioner Pain Management 10/27/21 documented as of this encounter
--- OUTSIDE RECORDS SUMMARY | 2025-02-07 05:13 | XMS_ITS | Clinical Summary ---
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
--- OUTSIDE RECORDS SUMMARY | 2025-02-07 05:14 | XMS_ITS | Referral Summary ---
Author Organization [facility] Address [address] [place] [address] Care Team Providers Care Compensation Agent Name Role Phone Joon Hightower MD Primary Care Provider [phone] Adelso Guerrero MD Unavailable [phone] Matias Gomez NP Unavailable Khris Paiz MD Unavailable Sonny Diamond MD Unavailable Jody Sullivan DO Unavailable Matt Hickey MD Unavailable Encounters Date Type Department Care Team Description 12/14/2024 8:53 AM CDT - 12/14/2024 11:59 PM CDT Hospital Encounter [facility] [address] [place] [address] Matias Gomez NP Chronic bilateral low back pain with bilateral sciatica (Primary Dx); Postlaminectomy syndrome, lumbar; Lumbosacral spondylosis without myelopathy; Myalgia; Spinal stenosis of lumbar region without neurogenic claudication Discharge Disposition: Discharge to home or self care 11/24/2024 10:45 AM CDT Office Visit [facility] [address] [place] [address] Bulmaro Olson MD Coronary artery disease of [place] artery of [place] heart with stable angina pectoris (Primary Dx); [...] n ative heart with stable angina pectoris ([facility]) 08/03/2019 Overview (08/03/2019): Added automatically from request for surgery [id number] Atrioventricular block, 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 [...] 07/16/2019 Assessment & Plan (05/31/2019 12:49 PM REPAIRER PUMP): Left upper back, 2 weeks status post [...] = 0.6 oz pur e alcohol) social [employer] Utilities Answer Date Recorded In the past 12 months has e [employer], gas, oil, or water [employer] threatened to shut off services in your [...] often do you attend chur ch or jewish services? Never 07/07/2024 Do you belong to any clubs o r organizations such as catholic groups, unions, fraternal or athletic groups, [...] place to sleep or slept in a halfway (including now)? No 08/28/2023 Housing Stability Vital Sign Answer Haris e Recorded In the last 12 months, was t here a time when you were not able to pay the mortgage or rent on time? No 07/07/2024 In the past 12 months, how m any times have you moved where you were living? 0 07/07/2024 At any time in the past 12 m [facility], were you homeless or living in a halfway (including now)? No 07/07/2024 Personal Safety Answer Date Recorded Have you ever been in or are you currently in a harmful physical or emotional relationship or is someone making you feel afraid or unsafe? Denies 07/06/2024 Sex and Gender Information Value Date Recorded Sex Assigned at Not on file Legal Sex Male 11:56 PM REPAIRER PUMP Gender Identity Not on file Sexual Orientation [...] on file Medical Devices Implanted Type Area Nurse Researcher Device Identifier Shelf Expiration Date Model / Serial / Lot Spinal Cord Stimulator Explanted:08/29 by Shabbir Parkinson MD (Quantity not on file) Spinal Cord Stimulator N/A: Back [employer] [id number] Palacos R+G High Viscosity Cement Bone Gentamicin Arthroplasty - [id number] Implanted:Qty: 1 on 05/21/2021 by Adelso Guerrero MD at [facility] Right: Knee [employer] [id number] 09/25/2023 [id number] / / [id number] [employer] [id number] Persona Cruciate Retaining Knee Right 6 Narrow Component Femoral - [id number] Implanted:Qty: 1 on 05/21/2021 by Adelso Guerrero MD at [facility] Right: Knee [employer] [id number] 04/09/2030 [id number] / / [id number] [employer] [id number] Persona Natural Tibia Stem Knee Right 5d D Baseplate Tibial - [id number] Implanted:Qty: 1 on 05/21/2021 by Adelso Guerrero MD at [facility] Right: Knee [employer] [id number] 12/29/2030 [id number] / / [id number] [employer] [id number] Persona 29mm Knee Component Patellar All Poly Latex Free - [id number] Implanted:Qty: 1 on 05/21/2021 by Adelso Guerrero MD at [facility] Right: Knee [employer] [id number] 03/19/2029 [id number] / / [id number] [employer] [id number] Persona 10mm Knee Right 6-7 C-D Insert Articular Vivacit-E - [id number] Implanted:Qty: 1 on 05/21/2021 by Adelso Guerrero MD at [facility] Right: Knee [employer] [id number] 08/26/2025 [id number] / / [id number] Procedures Procedure Name Priority Date/Time Associated Diagnosis Comments PSA SCREEN Add-On 07/06/2024 9:52 PM REPAIRER PUMP US ABDOMINAL AORTIC ANEURYSM SCREENING Schedule Routine, Read Routine (OP Routine) 07/08/2019 SERUM HEPATITIS C AB Routine 03/20/2016 2:17 PM CDT from Last 3 Months or Most Recently Relevant to Health Maintenance Results * PSA screen (07/06/2024 9:52 PM REPAIRER PUMP) PSA-Total 0.02 <=6.20 ng/mL Comment: Interpretive Data [...] last revised 21. Blood 07/06/2024 9:52 PM REPAIRER PUMP 07/06/2024 11:16 PM REPAIRER PUMP us Saray Agudelo MD LAB BLOOD ORDERABLES Final Re sult [facility] [address] [place] [address] * US Abdominal Aortic Aneurysm [...] Most Recently Relevant to Health [place] [address] MEDICARE [facility] MEDICARE [address] [address] [address] [facility] [place] [address] MEDICARE [facility] [place] [address] Advance Directives For more information, please contact: [phone] Documents on File Type Date Recorded Patient Sign Language Teacher Expl anation ADVANCE DIRECTIVE 06/19/2021 4:15 PM [...] Agents on File Name Relationship Healthcare Agent Rneaehi p Communication Asia Yanez Spouse Health Care Agent Care Teams Compensation Agent Relationship Specialty Start Date End Date Joon Hightower MD [address] [place] [address] PCP - General 03/20/16 Adelso Guerrero MD [address] [facility] [place] [address] Surgeon Orthopedic Surgery 05/22/21 Matias Gomez, NUMBERER AND WIRER [address] [place] [address] Nurse Practitioner Pain Management 10/27/21 Khris Paiz MD [address] [place] [address] Consulting Physician Infectious Diseases 07/15/24 Sonny Diamond MD [address] [place] [address] Consulting Physician Neurosurgery 07/15/24 Jody Sullivan DO [address] [place] [address] Consulting Physician Cardiology 07/15/24 [place] [address] [place] [address] Consulting Physician Pain Management 12/14/24
--- OUTSIDE RECORDS SUMMARY | 2025-02-07 05:14 | XMS_ITS | Clinical Summary ---
Author Organization [facility] Address [address] [place] [id number] Care Team Providers Care Crm System Administrator Name Role Phone Joon Hightower MD Primary Care Provider [phone] Adelso Guerrero MD Unavailable Matias Gomez NP Unavailable [phone] Khris Paiz MD Unavailable Sonny Diamond MD Unavailable [phone] Jody Sullivan DO Unavailable Matt Hickey MD [...] n ative heart with stable angina pectoris ([facility]) 08/03/2019 Overview (08/03/2019): Added automatically from request for surgery [id number] Atrioventricular block, 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 [...] 07/16/2019 Assessment & Plan (05/31/2019 12:49 PM ANIMAL TAXONOMIST): Left upper back, 2 weeks status post [...] 12/14/2024 11:59 PM CDT Hospital Encounter [facility] [address] [place] [address] Matias Gomez NP Chronic bilateral low back pain with bilateral sciatica (Primary Dx); Postlaminectomy syndrome, lumbar; Lumbosacral spondylosis without myelopathy; Myalgia; Spinal stenosis of lumbar region without neurogenic claudication Discharge Disposition: Discharge to home or self care 11/24/2024 10:45 AM CDT Office Visit [facility] [address] [place] [address] Bulmaro Olson MD 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 (Primary Dx); [...] Stroke Mother Denisse Vision loss Paternal Grandfather [place] Relation Name Status Comments Brother Milton Alive Daughter Christin Robles Father Zafar Mother Denisse Paternal Grandfather [place] Sister Alive Two sisters Social History Tobacco Use Types Packs/Day Years Used Date Smoking Tobacco: Every Day Cigarettes Smokeless Tobacco: Never Tobacco Cessation:Ready to Q uit: Not Asked; Counseling Given: Not Answered Comments:A couple daily Alcohol Use Standard Drinks/Week Comments No 0 (1 standard drink = 0.6 oz pur e alcohol) social [facility] Utilities Answer Date Recorded In the past [...] often do you attend chur ch or episcopalian services? Never 07/07/2024 Do you belong to any clubs o r organizations such as restoration groups, unions, fraternal or athletic groups, or [...] place to sleep or slept in a skilled nursing (including now)? No 08/28/2023 Housing Stability Vital Sign Answer Haris e Recorded In the last 12 months, was t here a time when you were not able to pay the mortgage or rent on time? No 07/07/2024 In the past 12 months, how m any times have you moved where you were living? 0 07/07/2024 At any time in the past 12 m [facility], were you homeless or living in a skilled nursing (including now)? No 07/07/2024 Personal Safety Answer Date Recorded Have you ever been in or are you currently in a harmful physical or emotional relationship or is someone making you feel afraid or unsafe? Denies 07/06/2024 Sex and Gender Information Value Date Recorded Sex Assigned at Not on file Legal Sex Male 11:56 PM ANIMAL TAXONOMIST Gender Identity Not on file Sexual Orientation [...] 07/15/2024, 05/22/2021 Medical Devices Implanted Type Area Race Starter Device Identifier Shelf Expiration Date Model / Serial / Lot Spinal Cord Stimulator Explanted:08/29 by Shabbir Parkinson MD (Quantity not on file) Spinal Cord Stimulator N/A: Back Crimson [employer] [id number] Palacos R+G High Viscosity Cement Bone Gentamicin Arthroplasty - [id number] Implanted:Qty: 1 on 05/21/2021 by Adelso Guerrero MD at [facility] Right: Knee [employer] [id number] 09/25/2023 [id number] / / [id number] [employer] [id number] Persona Cruciate Retaining Knee Right 6 Narrow Component Femoral - [id number] Implanted:Qty: 1 on 05/21/2021 by Adelso Guerrero MD at [facility] Right: Knee [employer] [id number] 04/09/2030 [id number] / / [id number] [employer] [id number] Persona Natural Tibia Stem Knee Right 5d D Baseplate Tibial - [id number] Implanted:Qty: 1 on 05/21/2021 by Adelso Guerrero MD at [facility] Right: Knee [employer] [id number] 12/29/2030 [id number] / / [id number] [employer] [id number] Persona 29mm Knee Component Patellar All Poly Latex Free - [id number] Implanted:Qty: 1 on 05/21/2021 by Adelso Guerrero MD at [facility] Right: Knee [employer] [id number] 03/19/2029 [id number] / / [id number] [employer] [id number] Persona 10mm Knee Right 6-7 C-D Insert Articular Vivacit-E - [id number] Implanted:Qty: 1 on 05/21/2021 by Adelso Guerrero MD at [facility] Right: Knee [employer] [id number] 08/26/2025 [id number] / / [id number] Procedures Procedure Name Priority Date/Time Associated Diagnosis Comments PSA SCREEN Add-On 07/06/2024 9:52 PM ANIMAL TAXONOMIST US ABDOMINAL AORTIC ANEURYSM SCREENING Schedule Routine, Read Routine (OP Routine) 07/08/2019 SERUM HEPATITIS C AB Routine 03/20/2016 2:17 PM CDT from Last 3 Months or Most Recently Relevant to Health Maintenance Results * PSA screen (07/06/2024 9:52 PM ANIMAL TAXONOMIST) PSA-Total 0.02 <=6.20 ng/mL Comment: Interpretive Data [...] last revised 21. Blood 07/06/2024 9:52 PM ANIMAL TAXONOMIST 07/06/2024 11:16 PM ANIMAL TAXONOMIST us Saray Agudelo MD LAB BLOOD ORDERABLES Final Re sult [facility] [address] [place] [address] * US Abdominal Aortic Aneurysm Screening (07/08/2019) [...] Most Recently Relevant to Health Maintenance [place] [address] MEDICARE [facility] [employer] [place] [address] MEDICARE [facility] MEDICARE [facility] MEDICARE [place] [address] Advance Directives For more information, please contact: [phone] Documents on File Type Date Recorded Patient Flue Tile Press Operator Expl anation ADVANCE DIRECTIVE 06/19/2021 4:15 PM [...] Yanez Spouse Health Care Agent Care Teams Crm System Administrator Relationship Specialty Start Date End Date Joon Hightower MD [address] [place] [address] PCP - General 03/20/16 Adelso Guerrero MD [address] [place] [place] [address] Surgeon Orthopedic Surgery 05/22/21 [place] [address] [place] [address] Nurse Practitioner Pain Management 10/27/21 Khris Paiz MD [address] [place] [address] Consulting Physician Infectious Diseases 07/15/24 Sonny Diamond MD [address] [place] [address] Consulting Physician Neurosurgery 07/15/24 Jody Sullivan DO [address] [place] [address] Consulting Physician Cardiology 07/15/24 [place] [address] [place] [address] Consulting Physician Pain Management 12/14/24
[2025-02-07] MEDS: CIPROFLOXACIN HCL 0.3% OP SOLN 2.5 ML BTL 2 DROP RIGHT EYE (05:30)
[2025-02-07 05:32] VITALS: BP 123/83; PULSE 78; RESP 14; O2SAT 97
[2025-02-07 05:33] VITALS: BP 123/83; PULSE 78; RESP 14; O2SAT 97
== END 2025-02-07 05:35 | disposition home or self-care (01) ==
LOC: ANHED 05:11
PROVIDERS: Emergency Provider Emergency Medicine
DX: S05.01XA Injury of conjunctiva and corneal abrasion without foreign body, right eye, initial encounter (principal); I48.91 Unspecified atrial fibrillation; K21.9 Gastro-esophageal reflux disease without esophagitis; E78.5 Hyperlipidemia, unspecified; I10 Essential (primary) hypertension; Z95.1 Presence of aortocoronary bypass graft; W22.8XXA Striking against or struck by other objects, initial encounter
CPT/HCPCS: 99283